=== PATIENT | male | born 1970 | race Caucasian/White ===

== ENCOUNTER 2022-03-08 01:41 | Outpatient (CLI) | payer OTHER, SELFPAY ==
--- OUTSIDE RECORDS SUMMARY | 2022-03-08 01:46 | XMS_ITS | Encounter Summary ---
:1970 Author Organization [facility] [place] [address] Care Team Providers Name Role Phone Dominga Salas APRN Primary Care Provider Reason for Referral Consultation (Routine) - Closed Specialty Diagnoses / Procedures Referred By Contact Refer mere To Contact Pain and Spine Center Diagnoses Thigh numbness Alan Hemphill MD [facility] Pain And [facility] Spine [address] [facility] NEUROSURGERY [address] [address] Phone: Fax: Referral ID Status Reason Start Expiration Visits Visits Date Date Requested Authorized [id number] Closed Pain 05/15/2021 05/15/2022 1 1 Interventional Procedure Reason for Visit Reason Comments Back Pain Left Leg Pain Consultation (Routine) - Closed Specialty Diagnoses / Procedures Referred By Contact Refer mere To Contact Pain and Spine Center Diagnoses Other specified postprocedural states Personal history of other diseases of the musculoskeletal system and connective tissue HX OF PREVIOUS BACK SURGERIES, L LATERAL THIGH NUMBNESS, L FOOT NUMBNESS, NOT ABLE TO SEPARATE TOES Dominga Salas [facility] Pain And [employer] Spine [address] [place] [place] [address] [address] [place] [address] Phone: Fax: Referral ID Status Reason Start Date Expiration Date Visits V isits Requested Authorized [id number] Closed Consult, Test 03/15/2021 03/15/2022 6 6 [facility] PCP Updated and/or Approved Encounter Details Date Type Department Care Team Description 05/15/2021 Office Visit Pain and Spine Center at Maricruz Hemphill MD Thigh numbness [facility] Catina [place] [address] [place] [address] [phone] (Wo rk) Social History Tobacco Use Types Packs/Day Years Used Date Never Smoker Smokeless Tobacco: Never Used Alcohol Use Standard Drinks/Week Comments Yes 0 (1 standard drink = 0.6 oz pure alcoho l) social- Alcohol Habits Answer Date Recorded How often do you have a drink containing alcohol? Not asked How many drinks containing alcohol do you have on a typical Not asked day when you are drinking? How often do you have six or more drinks on one occasion? No t asked Comment: social- 11/11/2013 Sex Assigned at Date Recorded Not on file documented as of this encounter Last Filed Vital Signs Vital Sign Reading Time Taken Comments Blood Pressure - - Pulse - - Temperature - - Respiratory Rate - - Oxygen Saturation - - Inhaled Oxygen Concentration - - Weight 97.5 kg (215 lb) 05/15/2021 8:58 AM EDT Height 176.5 cm (5' 9.5) 05/15/2021 8:58 AM EDT Body Mass Index 31.29 05/15/2021 8:58 AM EDT documented in this encounter Progress Notes lAan Hemphill MD - 05/15/2021 9:00 AM EDT Norm Blair returns to the spine center. I have performed several lumbar spine surgeries on him which have been for the most part successful. His complaint is that he has new numbness on the lateral surface of the left thigh. There is also some difficulty with control of the left leg but not really much in the way of pain. There are no right-sided symptoms and no bowel or bladder dysfunction. 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 On examination this is a man with a stated height of 5 feet 9 inches tall and a weight of 215 poundsfor a BMI of 31. There is full strength to confrontation in the lower extremities. He is able to step up and independently with either leg. There is decreased sensation to pinprick in the distribution of the lateral femoral cutaneous nerve of the thigh on the left. Deep tendon reflexes are trace at the knees and ankles. The distribution of his symptoms are consistent with meralgia paresthetica but also could be due to lumbar spine problems given his extensive spinal history. We had a discussion on the options and the situation. I think would be reasonable to get random glucose and hemoglobin A1c testing today I will refer him to the pain clinic for an injection of the left lateral femoral cutaneous nerve. I will seehim back following that. documented in this encounter Miscellaneous Notes Addendum Note - Pallavi Max - 05/15/2021 9:00 AM EDT Addended by: PALLAVI MAX on: 05/15/2021 10:05 AM Modules accepted: Orders documented in this encounter Plan of Treatment Scheduled Referrals Name Type Priority Associated Order Schedule Diagnoses Referral to Pain Outpatient Referral Routine Thigh numbness Or dered: Management 05/15/2021 documented as of this encounter Procedures Procedure Name Priority Date/Time Associated Diagnosis Comme nts HC HEMOGLOBIN A1C Routine 05/15/2021 10:24 AM Thigh numbness R esults for this EDT procedure are i n the results section. HC GLUCOSE, RANDOM Routine 05/15/2021 10:24 AM Thigh numbness Results for this EDT procedure are i n the results section. documented in this encounter Results Hemoglobin A1c (05/15/2021 10:24 AM EDT) athologist Signature Hemoglobin A1C 5.3 4.3 - 5.6 [facility] Comment: Reference Range: 4.3 - 5.6% 5.7 - 6.4% - Increased Risk of Developin g Diabetes Mellitus >= 6.5% - Consistent with diagnosis of D iabetes Mellitus In the absence of hyperglycemia (i.e. pl asma glucose > 200 mg/dL) or classic symptoms of hyperglycemia a repeat measu rement of HbA1c should be performed on a separate sample to confirm the diagnos is. Diagnosis and Classification of Diabetes Mellitus, Diabetes Care 2013; 36: Suppl. 1, S67-74 Est Avg Gluc 105 mg/dL [facility] Comment: eAG equivalents for HbA1c percentages: HbA1c(%) ?eAG(mg/dL) 6.0 ?126 6.5 ?140 7.0 ?154 7.5 ?169 8.0 ?183 8.5 ?197 9.0 ?212 9.5 ?226 10.0 ? 240 Limitations: The eAG calculation has not been validated on women, individuals below 18 years old and above 70 years old, and individuals with hemoglobinopathies. Additional resources are available on e ADA website. Arley CUNNINGHAM, Nicola J, Jeff R, et al. ??Tr anslating the A1C assay into estimated average glucose values. ??Diabetes Care 2008:31(8):4813-7803. Specimen Anatomical Collection Method Collection Time Receive d Time (Source) Location / / Volume Laterality Blood 05/15/2021 10:24 05/15/2021 AM EDT 10:29 AM EDT Resulting Agency Comment Spec In Lab Alan Hemphill MD CHEMISTRY ORDERABLES Performing Organization Address City/State/ZIP [place] [address] Glucose, random (05/15/2021 10:24 AM EDT) P athologist Signature Glucose Lvl 101 65 - 199 [facility] mg/dL [facility] Comment: Diabetes: >=200 mg/dL plus symp toms Specimen Anatomical Collection Method Collection Time Receive d Time (Source) Location / / Volume Laterality Blood 05/15/2021 10:24 05/15/2021 AM EDT 10:29 AM EDT Resulting Agency Comment Spec In Lab Alan Hemphill MD CHEMISTRY ORDERABLES Performing Organization Address City/State/ZIP [place] [address] documented in this encounter Visit Diagnoses Diagnosis Thigh numbness Disturbance of skin sensation documented in this encounter Care Teams Expeller Operator Relationship Specialty Start Date End Date Dominga Salas APRN PCP - General Internal Medicine 12/18/16 [facility] [place] [address] documented as of this encounter
--- OUTSIDE RECORDS SUMMARY | 2022-03-08 01:46 | XMS_ITS | Encounter Summary ---
:1970 Author Organization [facility] [place] [address] Care Team Providers Name Role Phone Dominga Salas APRN Primary Care Provider Reason for Visit Auth/Cert Specialty Diagnoses / Procedures Referred By Contact Refer red To Contact Diagnoses Meralgia paresthetica Procedures PRO INJECTION ANES AGENT &/OR STEROID OTHER PERIPHERAL NERVE/BRANCH NERVE BLOCK, OTHER PERIPHERAL NERVE OR BRANCH (WRVU 0.75) Referral ID Status Reason Start Date Expiration Date Visits Requ ested Visits Authorized [id number] 1 1 Encounter Details Date Type Department Care Team Description 06/15/2021 Surgery Pain Management Toni Child MD NERVE BLOCK, OTHER [facility] PER [facility] NERVE OR Hospital DR BRANCH (WRVU 0.75) [facility] [place] [address] [place] [address] [phone] Social History Tobacco Use Types Packs/Day Years [...] Sign Reading Time Taken Comments Blood Pressure 130/98 06/15/2021 8:51 AM EDT Pulse 79 06/15/2021 8:51 AM EDT Temperature - - Respiratory Rate - - Oxygen Saturation 98% 06/15/2021 8:51 AM EDT Inhaled Oxygen Concentration - - Weight 97.5 kg (215 lb) 06/15/2021 8:51 AM EDT Height 177.8 cm (5' 10) 06/15/2021 8:51 AM EDT Body Mass Index 30.85 06/15/2021 8:51 AM EDT documented in this encounter Discharge Instructions Discharge InstructionsJas Jc - 06/15/2021 9:40 AM EDT Pain Management Center Discharge Instructions: You were seen today by Surgeon(s): Toni Plascencia MD Mainkar, Ojas A, MD The following was performed: Procedure(s) (LRB): NERVE BLOCK, OTHER PERIPHERAL NERVE OR BRANCH (WRVU 0.75) (Left) It is normal that the injection site will be sore for up to 48 hours. [x] You may also experience mild stiffness in the joint near the injection site. You may resume your normal activities: tomorrow. You may shower today. DO NOT tub bathe, use whirlpools, hot tubs or pool therapy for 2 days. Remove Band-Aid(s) later today/tomorrow. Do not drive until tomorrow. Use caution walking/climbing stairs as you may be unsteady on your feet. You may use your usual medications, including pain medications, as directed, unless otherwise instructed. You may use an ice pack as needed for the first 24 hours, on for 20 minutes then off for 20 minutes.Do not apply heat today. Attempt to empty your bladder 4-6 hours after your procedure. [ ] If you have diabetes, monitor your blood sugars frequently. If your blood sugar increases and isof concern, contact your Primary Care Provider. You received the following medications: Medications Given During Procedure Date/Time Order Dose Route Action 06/15/2021 0938 BUpivacaine (pf) (Marcaine) (2.5 mg/mL) 0.25% injection 6 mL Intramuscular Given 06/15/2021 0940 methylPREDNISolone acetate (DEPO-Medrol) (40 mg/mL) injection 40 mg Intramuscular Given During regular business hours, please phone the Pain Management Center at with any questions or if the following or other troubling symptoms develop: 1) Prolonged dizziness or weakness (more than 1 day). 2) Localized swelling, redness or drainage at the injection site(s). 3) Temperature of 101 degrees that lasts for more than 4 hours. After 5 PM or on weekends, call and ask for Pain Clinic provider on-call. If you are unable to reach the Pain Management Center and have a complication, please call your Primary Care Provider or proceed to your local emergency department. Jas Jc Special instructions documented in this encounter Medications at Time of Discharge Medication Sig Dispensed Refills Start Date End Date multivit-min/folic/vit Take 1 tablet by 0 K/lycop (ONE-A-DAY MEN'S mouth daily. MULTIVITAMIN ORAL) MARIJUANA ORAL Take by mouth. 0 Patient uses edible as needed documented as of this encounter H&P Notes Anamaria Martinez MD - 06/14/2021 4:52 PM EDT Patient Name: Norm Blair Patient Age: 50 y.o. Birthdate: 1970 Admit date: (Not on file) Attending Physician: Toni Plascencia MD PREPROCEDURE HISTORY AND PHYSICAL Date of Visit: June 14, 2021 Chief Complaint: Meralgia paresthetica HPI: Norm Blair is a 50 y.o. male who presents today for L LFCN block with a diagnosis of 1. Meralgia paresthetica, unspecified laterality . The history is obtained from the patient, and I have reviewed medical records provided by the referring physician and located in the electronic medical record to fill in gaps in the patient's recollection of events, treatments and outcomes. LOCATION: L thigh PAST MEDICAL HISTORY: No past medical history on file. There are no medical history contraindications to this procedure. PAST SURGICAL HISTORY: Past Surgical History: Procedure Laterality Date ??? PRO LAMINOTOMY, LUMBAR DISK, 1 INTRSP 10/01/2013 LAMINOTOMY, DECOMPRESSION, FORAMINOTOMY, LUMBAR performed by Alan Hemphill MD at [facility] OR There are no past surgical contraindications to this procedure ALLERGIES: Gluten There are no allergic contraindications to this procedure. MEDICATIONS: No current facility-administered medications for this encounter. Current Outpatient Medications: ??? multivit-min/folic/vit K/lycop (ONE-A-DAY MEN'S MULTIVITAMIN ORAL), Take 1 tablet by mouth daily., Disp: , Rfl: ??? MARIJUANA ORAL, Take by mouth. Patient uses edible as needed, Disp: , Rfl: There are no medication contraindications to this procedure. FAMILY HISTORY: No family history on file. SOCIAL HISTORY: Social History Socioeconomic History ??? Marital status: Spouse name: Not on file ??? Number of children: Not on file ??? Years of education: Not on file ??? Highest education level: Not on file Occupational History ??? Not on file Tobacco Use ??? Smoking status: Never Smoker ??? Smokeless tobacco: Never Used Vaping Use ??? Vaping Use: Never used Substance and Sexual Activity ??? Alcohol use: Yes Comment: social- ??? Drug use: No ??? Sexual activity: Not on file Comment: defer Other Topics Concern ??? Not on file Social History Narrative ??? Not on file Social Determinants of Health Financial Resource Strain: ??? Difficulty of Paying Living Expenses: Not on file Food Insecurity: ??? Worried About Running Out of Food in the Last Year: Not on file ??? Ran Out of Food in the Last Year: Not on file Transportation Needs: ??? Lack of Transportation (Medical): Not on file ??? Lack of Transportation (Non-Medical): Not on file Physical Activity: ??? Days of Exercise per Week: Not on file ??? Minutes of Exercise per Session: Not on file Housing Stability: ??? Unable to Pay for Housing in the Last Year: Not on file ??? Number of Places Lived in the Last Year: Not on file ??? Unstable Housing in the Last Year: Not on file There are no social history contraindications to this procedure. ROS: Review of Systems Constitutional: Negative for fever, chills, or recent infection. Respiratory: Negative for shortness of breath. Cardiovascular: Negative for chest pain. Psychiatric/Behavioral: Negative for agitation and behavioral problems. PHYSICAL EXAM: There were no vitals taken for this visit. Physical Exam Constitutional: He appears well-developed and well-nourished. No distress. Cardiovascular: Normal heart rate. Pulmonary/Chest: Effort normal and breath sounds normal. Skin: He is not diaphoretic. This is no rash, apparent infection, or other abnormality to the area of the proposed injection. There are no physical examination findings which would preclude this procedure. ASSESSMENT: 1. Meralgia paresthetica, unspecified laterality PLAN: Proceed with procedure as planned. Thank you for the opportunity to participate in Norm Blair's care. Please feel free to contact me with any questions. Sincerely, Anamaria Martinez MD Pain Medicine Fellow documented in this encounter Miscellaneous Notes Op Note - Toni Plascencia MD - 06/15/2021 9:37 AM EDT Pain Management Operative Note Patient Name: Norm Blair : [id number] MR#: [id number] Case Date: 06/15/2021 Surgeon: Surgeon(s) and Role: * Toni Plascencia MD - Primary * Anamaria Martinez MD - Fellow Present on Admission: Left meralgia paresthetica Postoperative diagnosis: Same Procedure(s) (LRB): NERVE BLOCK, OTHER PERIPHERAL NERVE OR BRANCH (WRVU 0.75) (Left) ULTRASOUND-GUIDED LEFT LATERAL FEMORAL CUTANEOUS NERVE BLOCK PROCEDURE NOTE The patient complains of left anterolateral thigh pain. Dx: meralgia paresthetica Mr. Blair was greeted by the nurse who verified patients name and . Mr. Blair was interviewed and the medical record reviewed. There were no medical, pharmacologic, radiographic, or other structural contraindications to attempting the lateral femoral cutaneous block.Risks and potential side effects were discussed. The potential benefits of the procedure were reviewed with Mr. Blair and his voiced concerns were addressed. After obtaining informed consent, the patient consent form was signed. Standard time-out procedure was performed. Mr. Blair was placed in the supine position on the procedure table. The skin entry point for entering/approaching a point 3 cm distal and then 3 cm medial to the ASIS was marked. The skin was thoroughly prepared with chlorhexidine preparation. Using a linear ultrasound probe, the lateral femoral cutaneus nerve, femoral artery, femoral nerve and femoral vein were identified. The insertion area was thoroughly anesthetized with 1% Lidocaine using a 1.5 25G skin needle. Next, I entered the skin usinga lateral to medial approach with a 2 22 G ultrasound needle until the tip of the need was in closeproximity to the lateral femoral cutaneus nerve. Aspiration revealed no blood or other fluid. Next, I injected a solution of 6 cc of 0.25% Bupivacaine mixed with 1 cc of DepoMedrol (40 mg/cc) without resistance. This was watched with ultrasound in real time. Hydrodissection was noticed around the lateral femoral cutaneous nerve. 1. Follow up with dr. Hemphill. 2. RTC if repeat injection needed. Post procedure instruction was given. Having met discharge criteria he was discharged from the Pain Management Center. The procedure was performed by Dr. Martinez under my supervision. I was the attending physician supervising the fellow in the above care and I was present with the fellow for the entire procedure. Toni Plascencia MD Attending Physician [facility] [place] [address] / CC: Dominga Salas, CRAP SHOOTER [address] [place] [id number] documented in this encounter Plan of Treatment Not on filedocumented as of this encounter Procedures Procedure Name Priority Date/Time Associated Diagnosis Comme nts NERVE BLOCK, OTHER 06/15/2021 9:23 AM EDT Meralgia PERIPHERAL NERVE OR paraesthetica, left BRANCH (WRVU 0.75) NERVE BLOCK, OTHER Routine 06/15/2021 8:47 AM EDT Meralgia PERIPHERAL NERVE OR paraesthetica, left BRANCH documented in this encounter Visit Diagnoses Diagnosis Meralgia paresthetica, unspecified later ality Meralgia paraesthetica, left Meralgia paraesthetica, left documented in this encounter Administered Medications Inactive Administered Medications - up to 3 most recent administrations Medication Order MAR Action Action Date Dose Rate Site BUpivacaine (pf) (Marcaine) (2.5 Given 06/15/2021 9:38 AM EDT 6 mLs mg/mL) 0.25% injection ONCE PRN, Starting on Amanda 06/15/21 at 0938, Until Amanda 06/15/21 at 1148, Intra-Operative (Intra-Procedure), Routine methylPREDNISolone acetate (DEPO-Medrol) (40 Given 9:40 AM EDT 40 mg mg/mL) injection ONCE PRN, Starting on Amanda 06/15/21 at 0940, Until Amanda 06/15/21 at 1148, Intra-Operative (Intra-Procedure), Routine documented in this encounter Active and Recently Administered Medications Times are shown in EDT. PRN Medication Order 06/13/2021 06/14/2021 06/15/2021 BUpivacaine (pf) (Marcaine) (2.5 mg/mL) 0.25% injection (CANCELE D) 0938 (Given - Provider: Anamaria Martinez MD - Comment: left lateral cutaneous nerve block) ONCE PRN, Starting on Amanda 06/15/21 at 09 38, Until Amanda 06/15/21 at 1148, Intra- Operative (Intra-Procedure), Routine methylPREDNISolone acetate (DEPO-Medrol) (40 mg/mL) injection (C ANCELED) 0940 (Given - Provider: Anamaria Martinez MD - Comment: left lateral cutaneous nerve block) ONCE PRN, Starting on Amanda 06/15/21 at 09 40, Until Amanda 06/15/21 at 1148, Intra- Operative (Intra-Procedure), Routine documented in this encounter Care Teams Aging Room Hand Relationship Specialty Start Date End Date Dominga Salas APRN PCP - General Internal Medicine 12/18/16 [address] [place] [address] documented as of this encounter
--- OUTSIDE RECORDS SUMMARY | 2022-03-08 01:46 | XMS_ITS | Encounter Summary ---
:1970 Author Organization [facility] [place] [address] Care Team Providers Name Role Phone Dominga Salas APRN Primary Care Provider Reason for Visit Auth/Cert Specialty Diagnoses / Procedures Referred By Contact Refer red To Contact Diagnoses Meralgia paresthetica Procedures PRO INJECTION ANES AGENT &/OR STEROID OTHER PERIPHERAL NERVE/BRANCH NERVE BLOCK, OTHER PERIPHERAL NERVE OR BRANCH (WRVU 0.75) Referral ID Status Reason Start Date Expiration Date Visits Requ ested Visits Authorized [id number] 1 1 Encounter Details Date Type Department Care Team Description 06/15/2021 Ancillary Procedure Pain Management Galen Child usa, MD Pain [facility] PAIN CLINIC [address] [address] [phone] Social History Tobacco Use Types Packs/Day Years [...] on file documented as of this encounter Plan of Treatment Not on filedocumented as of this encounter Procedures Procedure Name Priority Date/Time Associated Diagnosis Comme nts FILM LIBRARY Routine 06/15/2021 9:59 AM Pain Results f or this STORAGE ONLY PAIN EDT procedure are in CLINIC [facility] the results section. documented in this encounter Results Film Library- Storage Only pain Clinic [facility] (06/15/2021 9:59 AM EDT) Specimen (Source) Anatomical Location Collection Method / Collectio n Time Received Time / Laterality Volume Narrative [facility] - 06/15/2021 9:59 AM EDT See PACS for result report. Toni Plascecnia MD IMMaximino FILM LIBRARY ORDERABLES Performing Organization Address City/State/ZIP Code Phon e Number [place], [place] documented in this encounter Visit Diagnoses Diagnosis Pain Generalized pain documented in this encounter Care Teams Corporate Legal Manager Relationship Specialty Start Date End Date Dominga Salas APRN PCP - General Internal Medicine 12/18/[address] [place] [address] documented as of this encounter
--- OUTSIDE RECORDS SUMMARY | 2022-03-08 01:46 | XMS_ITS | Encounter Summary ---
:1970 Author Organization [facility] [place] [address] Care Team Providers Name Role Phone Dominga Salas APRN Primary Care Provider Encounter Details Date Type Department Care Team Description 12/07/2021 Office Visit Neurosurgery at [facility] [place] Alan Hemphill MD Meralgia paresthetickendal [place] [phone] NEUROSURGERY [phone] [place], [place] [address] Social History Tobacco Use Types Packs/Day Years [...] Sign Reading Time Taken Comments Blood Pressure 144/93 12/07/2021 10:33 AM EDT Pulse 110 12/07/2021 10:33 AM EDT Temperature 36.7 ??C (98.1 ??F) 12/07/2021 10:33 AM EDT Respiratory Rate 18 12/07/2021 10:33 AM EDT Oxygen Saturation 97% 12/07/2021 10:33 AM EDT Inhaled Oxygen Concentration - - Weight 109.9 kg (242 lb 3.2 oz) 12/07/2021 10:33 AM EDT Height 177.8 cm (5' 10) 12/07/2021 10:33 AM EDT Body Mass Index 34.75 12/07/2021 10:33 AM EDT documented in this encounter Progress Notes Alan Hemphill MD - 12/07/2021 10:30 AM EDT Norm Blair returns to neurosurgery clinic. He underwent injection of the left lateral femoral cutaneous nerve and although there was not immediate improvement over the subsequent months there was slow improvement. He does still have diffuse back and leg pain. We discussed the possibility of further imaging he is not particularly interested in that partly due to financial considerations. He is thinking about the possibility of disability. I think it would be reasonable for him to meet with one of the social workers to discuss his options and that will be arranged. We discussed my upcoming usp and how he could be seen by one of my partners in the future if questions were to arise. documented in this encounter Plan of Treatment Not on filedocumented as of this encounter Visit Diagnoses Diagnosis Meralgia paresthetica of left side Meralgia paresthetica documented in this encounter Care Teams Hand Meat Salter Relationship Specialty Start Date End Date Dominga Salas APRN PCP - General Internal Medicine 12/18/16 [address] [place] [address] documented as of this encounter
--- OUTSIDE RECORDS SUMMARY | 2022-03-08 01:46 | XMS_ITS | Encounter Summary ---
:1970 Author Organization [facility] [place] [address] Care Team Providers Name Role Phone Dominga Salas APRN Primary Care Provider Encounter Details Date Type Department Care Team Description 06/13/2021 Telephone Pain and Spine Far[facility]ad mahan at [facility] [place] Brianne [place]ales, [place] [address] Social History Tobacco Use Types Packs/Day Years [...] on file documented as of this encounter Miscellaneous Notes Telephone Encounter - Brianne Morales, RN - 06/13/2021 11:36 AM EDT Contact made with patient or off premise service representative as identified in contacts 1. Patient instructed to arrive at 08:45 on 06/15/21 with their courtesy bus driver for their left lateral femoral cutaneous nerve block procedure. Please plan to spend about 2 hours at the center. (3 hours for RFA) 2. Has pt started any new medications or supplements in the past two weeks? No 3. Have any of the following occurred within the two weeks before the procedure date? a. Patient is having a Covid vaccine or other vaccine No b. Patient has been exposed to anybody with a contagious illness such as Covid, flu, No c. Patient is taking antibiotics to treat an infection No d. Patient has any skin rashes, breakdown, blisters or open wounds No e. Patient has had any hospitalizations, ED visits, surgery, other procedure, dental procedure No f. Patient has taken oral steroids or had a steroid injection No g. Does patient have any of the following symptoms that are NEW and NOT explained by another health condition: fever or chills, cough, shortness of breath or difficulty breathing, fatigue, muscle or body aches, headache, new loss of taste or smell, sore throat, congestion or runny nose, nausea or vomit ing, diarrhea. No If yes, the patient has been directed to the covid hotline for testing prior to their procedure. (route telephone note to: [facility] Public Health covid 19 nurse triage with routing comment stating pt needs covid test prior to procedure and give date of procedure, add name and MRN to tracking tool). h. Has the patient's pain resolved or significantly improved such as a rating of 3/10 or less? No 4. Was patient instructed to stop any medications? No if yes: a. Name of medication(s): b. Confirm date of last dose: 5. Is patient having a nerve block: Yes a. If yes instructed to not take any pain medication for 12 hours before your procedure. 6. Patient instructed to take any prescribed medications that they were not told to stop, especiallyblood pressure medication, because their procedure may be cancelled if their blood pressure is too high. 7. Was patient instructed to follow NPO guidelines: No if yes, the following instructions were reviewed: a. You may eat up to 6 hours before your procedure b. You may have clear liquids only up to 2 hours before your procedure: water, apple juice, valerie darren, sprite, popsicles, broth, tea or coffee plain or with sweetener, absolutely no dairy products, nomilk including soy, oat, almond. 8. IF RFA: Does patient have a pacemaker? No a. If yes, document that cardiology was called and notified. 9. Additional notes if applicable: Patient expressed understanding and agreement with instructions Yes Patient denies further questions Yes documented in this encounter Plan of Treatment Not on filedocumented as of this encounter Visit Diagnoses Not on filedocumented in this encounter Care Teams High School Vice Principal Relationship Specialty Start Date End Date Dominga Salas APRN PCP - General Internal Medicine 12/18/16 [address] [place] [address] documented as of this encounter
--- OUTSIDE RECORDS SUMMARY | 2022-03-08 01:46 | XMS_ITS | Encounter Summary ---
:1970 Author Organization [facility] [place] [address] Care Team Providers Name Role Phone Dominga Salas APRN Primary Care Provider Reason for Visit Reason Comments Left Leg Pain Consultation (Routine) - Closed Specialty Diagnoses / Procedures Referred By Contact Refer red To Contact Pain and Spine Center Diagnoses Thigh numbness Aaln Hemphill MD [facility] [place] [facility] Pain And [facility] Spine DR [facility] NEUROSURGERY [address] [address] Phone: Fax: Referral ID Status Reason Start Expiration Visits Visits Date Date Requested Authorized [id number] Closed Pain 05/15/2021 05/15/2022 1 1 Interventional Procedure Encounter Details Date Type Department Care Team Description 05/25/2021 Office Visit Pain and Spine Center Toni Plascencia MD Meralgia at [facility] paraesthetica, left [facility] [place] [phone] Social History Tobacco Use Types Packs/Day Years [...] Sign Reading Time Taken Comments Blood Pressure 146/93 05/25/2021 3:19 PM EDT Pulse 92 05/25/2021 3:19 PM EDT Temperature - - Respiratory Rate - - Oxygen Saturation 97% 05/25/2021 3:19 PM EDT Inhaled Oxygen Concentration - - Weight 99.8 kg (220 lb) 05/25/2021 3:19 PM EDT Height 176.5 cm (5' 9.5) 05/25/2021 3:19 PM EDT Body Mass Index 32.02 05/25/2021 3:19 PM EDT documented in this encounter Progress Notes Wolfgang Quintero MD - 05/25/2021 3:20 PM EDT [facility] Pain Clinic Initial Consultation Note DOS: 05/25/21 : 1970 Norm Blair is a 50 y.o. year old male with a PMH including herniated lumbar disc without myelopathy who presents to the pain clinic at the referral of Alan Hemphill MD [facility] [place] [address] for consultation regarding Left lateral thigh numbness. CC: Chief Complaint Patient presents with ??? Left Leg Pain HPI: Norm is a 50 yo male, pt of Dr. Hemphill, who presents to the pain clinic for evaluation of L lateral thigh numbness and question of left lateral femoral cutaneous nerve injection. He has a h/o several lumbar spine surgeries. Has a h/o L posterior leg numbness for quite some time but the numbness of the thigh is new. He denies wearing tight belts or work belts or any other source of pressure along the belt line. Per patient, Dr. Hemphill would like to have injection performed prior to MRI. Site/Radiation: Left lateral thigh Onset: 2-3 months ago Pain Description: Location - L lateral thigh Quality - numbness Weakness - possibly Numbness/Tingling - yes Pain score: denies Alleviating factors - denies Aggravating factors - sitting for long periods Associated Symptoms: Denies weakness, bladder or bowel incontinence or saddle anesthesia. Current Treatments - marijuana edibles Prior Treatments/Medications (Per prior notes and patient): Medications : Topicals - denies NSAIDs - denies Acetaminophen - denies Antidepressants - denies Antieptileptics - denies Muscle Relaxants - denies Opioids - denies Steroids - denies PT: denies Surgery: 4 lumbar surgeries Injections: back injections 2008 Chiropractic: denies Acupuncture: denies Mental Health: denies ROS: Constitutional: No unintentional weight loss or gain, fevers, chills, or night sweats. HENT: No recent hearing changes. No difficulty swallowing. Eyes: No recent vision changes. Respiratory: No cough or shortness of breath. Cardiovascular: No chest pain or syncope. GI: No diarrhea, nausea, vomiting, or constipation. : No dysuria, hesitancy, or urgency. No incontinence. Musculoskeletal: No muscle weakness. Skin: No rashes or lesions. Neurologic: No numbness/tingling. No difficulty with balance. Psychiatric: Mood ok. No SI/HI. Sleep is good. Heme/Lymph/Imm: No easy bleeding or brusing. PMH/PSH: Patient Active Problem List Diagnosis Code ??? Herniated lumbar disc without myelopathy M51.26 ??? Condyloma acuminata A63.0 ??? Nevus D22.9 ??? Alopecia areata L63.9 ??? Acrochordon L91.8 No past medical history on file. Past Surgical History: Procedure Laterality Date ??? PRO LAMINOTOMY, LUMBAR DISK, 1 INTRSP 10/01/2013 LAMINOTOMY, DECOMPRESSION, FORAMINOTOMY, LUMBAR performed by Alan Hemphill MD at [facility] MAIN OR FAMILY HISTORY: No family history on file. SOCIAL HISTORY: Tobacco: no Alcohol: no Recreational drug use: marijuana Work: fills [employer] FUNCTIONAL STATUS: Independent in all ADLs. MEDICATIONS: Current Outpatient Medications: ??? multivit-min/folic/vit K/lycop (ONE-A-DAY MEN'S MULTIVITAMIN ORAL), Take 1 tablet by mouth daily., Disp: , Rfl: ??? MARIJUANA ORAL, Take by mouth. Patient uses edible as needed, Disp: , Rfl: ALLERGIES: Allergies Allergen Reactions ??? Gluten ciliac disease PHYSICAL EXAM: General: Patient is seated comfortably in NAD, well-groomed. HEENT: Head atraumatic, EOMI. Respiratory: Breathing comfortably on RA. Cardiovascular: 2+ peripheral pulses, no swelling Abdominal: non-distended, non-tender to palpation Skin: No appreciable rashes or skin breakdown Psych: Appropriate affect, A&Ox3, answers questions appropriately Musculoskeletal: LUMBAR SPINE EXAMINATION: Inspection: Scar: Yes Scoliosis: No; Obvious rash or infection: No Palpation: No TTP Range of motion: unrestricted with all planes Gait:normal gait and station Left Right Sacroiliac joint tenderness No No Facet joint tenderness No Yes Paraspinous region tenderness Negative Negative Red's test No No Heel walk Normal Normal Toe walk Normal Normal Straight leg raise Normal Normal Sacroiliac Joint: Test Left-sided SIJ pain? Right-sided SIJ pain? MELONY test no no Distraction no no Compression no no Sacral thrust no no Motor: Segment Muscle Action R L L3 Quadriceps Knee extension 5/5 5/5 L4,5 Hamstring Knee Flexion 5/5 5/5 L4 Tibialis anterior Dorsiflexion 5/5 5/5 L5 Extensor hallucis Great toe extension 5/5 5/5 S1 Gastrocnemius, FHL Plantar flexion 5/5 5/5 * exam limited by pain Sensory: Light Touch (0=absent, 1=impaired, 2=normal) Segment location Right Left L1 upper inner thigh 2 2 Lateral thigh 2 1 L2 mid-ant thigh 2 1 L3 med femoral condyle 2 2 L4 medial mal 2 2 L5 dorsum foot, 3rd MT 2 2 S1 lat heel 2 2 S2 Popliteal fossa 2 2 Reflexes: (0=absent, 1=slight response, 2=brisk/normal, 3=very brisk, 4=clonus) Test Root / Syndrome Right Left Knee L4 1 1 Ankle S1 1 1 Clonus Myelopathy neg neg TESTS/IMAGING: MRI 2015: IMPRESSION: Multilevel lumbar disc and facet degenerative changes as described above. No recurrent disc herniation at the levels of intervention. Moderate left L4-L5 and bilateral L5-S1 neural foraminal stenosis. The left L4-L5 facet joint may contact the exiting left L4 nerve root. Moderate bilateral subarticular recess stenosis at L4-L5. LABS: No results for input(s): WBC, RBC, HGB, HCT, MCV, MCH, MCHC, PLATELET, RDWCV in the last 168 hours. No results for input(s): PT, PTT, INR in the last 168 hours. Assessment: Norm Blair is a 50 y.o. year old male with a PMH including herniated lumbar disc without myelopathy who presents to the pain clinic for consultation regarding Left lateral thigh numbness. 1. Lateral thigh numbness: Unknown cause. Pt denies wearing tight fitting belts and is not obese. Hehas no signs of radiculopathy on exam. Possible meralgia paresthetica. Agree with plan to proceed tolateral femoral cutaneous nerve block. Plan: Diagnosis reviewed, treatment option addressed, and risk/benefits discussed. Self-care instructions given. I am recommending a multidisciplinary treatment plan to help this patient better manage their pain. 1. Physical Therapy: None 2. Clinical Health Psychologist to address issues of relaxation, behavioral change, coping style, and other factors important to improvement: None 3. Self Care Recommendations: None 4. Diagnostic Studies: None 5. Medication Management: None 6. Further procedures recommended: Left lateral femoral cutaneous nerve injection 7. Referrals: None 8. Follow up: With Dr. Hemphill Thank you for allowing us the opportunity to participate in Norm Blair's care. Wolfgang Quintero MD Pain Medicine Fellow [address] [phone] / [facility] Seen and discussed with supervising attending Dr. Plascencia. I have seen the patient and reviewed Dr. Quintero's above history and I agree with the details as written. The assessment and plan were formulated in discussion with me and I agree with them as documented. Toni Plascencia MD Attending [facility]ician [facility] [address] [address] / CC: Alan Hemphill MD [facility] [place] [place] [address] documented in this encounter Plan of Treatment Not on filedocumented as of this encounter Visit Diagnoses Diagnosis Meralgia paraesthetica, left documented in this encounter Care Teams Health Social Work Professor Relationship Specialty Start Date End Date Dominga Salas APRN PCP - General Internal Medicine 12/18/[address] [place] [address] [address] documented as of this encounter
--- OUTSIDE RECORDS SUMMARY | 2022-03-08 01:47 | XMS_ITS | Encounter Summary ---
:1970 Author Organization [facility] [place] [address] Care Team Providers Name Role Phone Jacob Adams MD Primary Care Provider [phone] Encounter Details Date Type Department Care Team Description 12/23/2013 Follow-Up Neurosurgery at [facility] [place] Alan Hemphill MD Spondylosis ([facility] [place] [phone] NEUROSURGERY [place], [place] [address] Social History Tobacco Use Types [...] Sign Reading Time Taken Comments Blood Pressure 143/90 12/23/2013 10:15 AM EDT Pulse 102 12/23/2013 10:15 AM EDT Temperature - - Respiratory Rate - - Oxygen Saturation - - Inhaled Oxygen Concentration - - Weight 93 kg (205 lb) 12/23/2013 10:15 AM EDT Height 177.8 cm (5' 10) 12/23/2013 10:15 AM EDT Body Mass Index 29.41 12/23/2013 10:15 AM EDT documented in this encounter Progress Notes Alan Hemphill MD - 12/23/2013 2:27 PM EDT Norm Blair returns to Neurosurgery Clinic. He has been engaging in physical therapy and is doing well. He has some occasional leg pain, but much much better than before surgery. 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 All questions were answered. He knows he can call here at any time if any further problems or questions should arise. documented in this encounter Plan of Treatment Not on filedocumented as of this encounter Visit Diagnoses Diagnosis Spondylosis - Primary Spondylosis of unspecified site without mention of myelopathy documented in this encounter Care Teams Film Vault Supervisor Relationship Specialty Start Date End Date Jacob Adams MD PCP - General 07/11/10 12/17/[address] [place] [address] documented as of this encounter
--- OUTSIDE RECORDS SUMMARY | 2022-03-08 01:47 | XMS_ITS | Encounter Summary ---
:1970 [place] [address] Care Team Providers Name Role Phone Jacob Adams MD Primary Care Provider Encounter Details Date Type Department Care Team Description 10/01/2013 Anesthesia Event Main Operating Room Haroon Price MD [facility] [place] [address] [facility] Rosalie Murray [facility] [place] [address] [place] [address] Anesthesia Record Procedure Summary Procedure Name Responsible Anesthesia Start Anesthesia Stop Time Anesthesiologist Time LAMINMicheal CAM Athos J, MD 10/01/13 0729 10/01/13 10 40 DECOMPRESSION, FORAMINOTOMY, LUMBAR (WRVU 13.18) (N/A Spine Lumbar) Events Date Time Event Comment 10/01/2013 0716 0729 Start 0733 AN Verify 0740 An Start Data 0740 An Induction 0742 An Intubation 0745 Anesthesia Ready 0830 Procedure Start [address] Joby mahan equests that patient not be relaxed for sallie modesta of case 1029 Extubation/LMA Out 1031 an stop data 1040 Stop 1040 Handoff The patient's ch art was reviewed. The current anestetic course as well as the anesthetic plans were also review ed. Name Total fentaNYL 350 mcg IV Lidocaine 100 mg Propofol 200 mg PHENYLephrine 240 mcg Ondansetron 8 mg Dexamethasone 8 mg Neostigmine 5 mg Glycopyrrolate 1 mg ceFAZolin 2 g Propofol INF 662.11 mg Vecuronium 13 mg lactated ringers infusion 1,000 mL 0 mL Agents Name O2 Sevoflurane (et) Isoflurane (et) Blood No blood administrations on file. Lines, Drains, and Airways Type Details Placement Removal Incision 10/01/13; lumbar spine 10/01/13 0000 by Obey Cabrera RN Urethral Catheter 10/01/13; indwelling 10/01/13 0000 by 10/01/131953 by double lumen catheter; Obey Cabrera RN Larosil iere, Jeanne 100% silicone; 16; S, VISCOSITY WORKER inserted; 1; drainage bag to dependent drainage; 10/01/13; 1953 PIV 10/01/13; 0655; 10/01/13 0655 by Phu, 10/02/13 1143 by 10/02/13; 1143 ANNEMARIE Monteiro Angela M VISCOSITY WORKER (RETIRED) Mask Ventilation: Easy 10/01/13 0742 by 10/01/13 1029 by Non-Surgical Airway (1); ETT Type: Cuffed, Rosalie Murray, Rosalie Lanza, Oral; ETT Size: 8 mm; DIRECT MARKETING REPRESENTATIVE DIRECT MARKETING REPRESENTATIVE Oral Airway: 100 mm (5) documented in this encounter Social History Tobacco Use Types Packs/Day Years Used Date Never Smoker Smokeless Tobacco: Never Used Alcohol Use Standard Drinks/Week Comments Yes 0 (1 standard drink = 0.6 oz pure alcoho l) social-1 beer a week Alcohol Habits Answer Date Recorded How often do you have a drink containing alcohol? Not asked How many drinks containing alcohol do you have on Not asked a typical day when you are drinking? How often do you have six or more drinks on one Not asked occasion? Comment: social-1 beer a week 10/01/2013 Sex Assigned at Date Recorded Not on file documented as of this encounter OR Notes Anesthesia Postprocedure Evaluation - aHroon Burton MD - 10/02/2013 5:33 PM EST Patient: Norm Blair Procedure(s) Performed: Procedure(s): LAMINOTOMY, DECOMPRESSION, FORAMINOTOMY, LUMBAR Actual Anesthetic: No value filed. Patient location: PACU Post-op pain: Adequate analgesia Post-op nausea: no nausea or vomiting Last Vitals: Filed Vitals: 10/02/13 1027 BP: 130/70 Pulse: 68 Temp: 36.6 ??C (97.9 ??F) Resp: 17 Post-op cardiovascular and respiratory status: is stable Level of consciousness: awake, alert and oriented Complications: no apparent complications and tolerated the procedure well Fluid Status: normal Anesthesia Preprocedure Evaluation - Haroon Burton MD - 10/01/2013 7:20 AM EST Pre-Anesthesia Evaluation for: Norm Blair a 42 y.o. male. Procedure(s): LAMINOTOMY, DECOMPRESSION, FORAMINOTOMY, LUMBAR Patient Active Problem List Diagnosis ??? Herniated lumbar disc without myelopathy No past medical history on file. No past surgical history on file. History Substance Use Topics ??? Smoking status: Never Smoker ??? Smokeless tobacco: Never Used ??? Alcohol Use: Yes Comment: social History Drug Use No Allergies Allergen Reactions ??? Gluten ciliac disease Medications: MAR and/or home medications have been reviewed. Physical Exam: There were no vitals filed for this visit. There is no height or weight on file to calculate BMI. Airway Assessment: Mallampati: II Cardiovascular Assessment: Pulmonary Assessment: Dental Assessment: Misc Assessment: Anesthesia Plan: ASA 2 general, Informed Consent: Misc. Assessment: documented in this encounter Plan of Treatment Not on filedocumented as of this encounter Visit Diagnoses Not on filedocumented in this encounter Administered Medications Inactive Administered Medications - up to 3 most recent administrations Medication Order MAR Action Action Date Dose Rate Site ceFAZolin (ANCEF) 1g in dextrose 5% Given 10/01/2013 7:34 AM EST 2 g 50mL PRN, Starting on Amanda 2/13/14 at 0734, Until Amanda 10/01/13 at 1043, Administer over 30 Minutes, Anesthesia Intra-op dexamethasone (DECADRON) injection Given 10/01/2013 8:12 AM EST 8 mg PRN, Starting on Amanda 10/01/13 at 0812, Until Amanda 10/01/13 at 1043, Anesthesia Intra-op, Routine fentaNYL 50mcg/mL injection Given 10/01/2013 9:27 AM EST 100 mcg PRN, Starting on Amanda 10/01/13 at 0753, Until Amanda 10/01/13 at 1043, Pain, Anesthesia Intra-op, Routine Given 10/01/2013 8:27 AM EST 100 mcg Given 10/01/2013 7:53 AM EST 100 mcg glycopyrrolate (ROBINUL) injection Given 10/01/2013 10:17 AM EST 0.2 mg PRN, Starting on Amanda 10/01/13 at 0934, Until Amanda 10/01/13 at 1043, Anesthesia Intra-op, Routine Given 10/01/2013 10:02 AM EST 0.4 mg Given 10/01/2013 9:34 AM EST 0.4 mg lactated ringers infusion 1,000 mL New Bag 10/01/2013 9:15 AM EST mL 1,000 mL, at 100 mL/hr, Intravenous, CONTINUOUS, Starting on Amanda 10/01/13 at 0700, Until Amanda 10/01/13 at 1228, Day of Surgery (Day of Procedure) New Bag 10/01/2013 7:28 AM EST mL lidocaine (PF) (XYLOCAINE) 100 mg/5 mL (2 %) Given 7:40 AM EST 100 mg injection PRN, Starting on Amanda 10/01/13 at 0740, Until Amanda 10/01/13 at 1043, Anesthesia Intra-op, Routine neostigmine (PROSTIGMINE) injection Given 10/01/2013 10:17 AM EST 1 mg PRN, Starting on Amanda 10/01/13 at 0934, Until Amanda 10/01/13 at 1043, Anesthesia Intra-op, Routine Given 10/01/2013 10:02 AM EST 2 mg Given 10/01/2013 9:34 AM EST 2 mg ondansetron (ZOFRAN) injection Given 10/01/2013 10:03 AM EST 8 mg PRN, Starting on Amanda 10/01/13 at 1003, Until Amanda 10/01/13 at 1043, Nausea, Anesthesia Intra-op, Routine PHENYLephrine HCl in NS (PF) (ELVA-SYNEPHRINE) Given 9:00 AM EST 80 mcg 0.8 mg/10 mL (80 mcg/mL) injection Syrg PRN, Starting on Amanda 10/01/13 at 0858, Until Amanda 10/01/13 at 1043, Anesthesia Intra-op, Routine Given 10/01/2013 8:58 AM EST 160 mcg propofol (DIPRIVAN) 10 mg/mL bolus injection Given 7:40 AM EST 200 mg (Anesthesia) PRN, Starting on Amanda 10/01/13 at 0740, Until Amanda 10/01/13 at 1043, Anesthesia Intra-op propofol (DIPRIVAN) infusion New Bag 10/01/2013 7:49 AM 50 mcg/kg/min 27.2 mL/hr CONTINUOUS PRN, Starting on EST Amanda 10/01/13 at 0749, Until Amanda 10/01/13 at 1043, Anesthesia Intra-op, Routine vecuronium (NORCURON) injection Given 10/01/2013 8:42 AM EST 3 mg PRN, Starting on Amanda 10/01/13 at 0740, Until Amanda 10/01/13 at 1043, Anesthesia Intra-op, Routine Given 10/01/2013 7:40 AM EST 10 mg documented in this encounter Care Teams Field Technician Relationship Specialty Start Date End Date Jacob Adams MD PCP - General 07/11/10 12/17/16 [address] [facility] [address] [place] [address] documented as of this encounter
--- OUTSIDE RECORDS SUMMARY | 2022-03-08 01:47 | XMS_ITS | Encounter Summary ---
:1970 Author Organization [facility] [place] [address] Care Team Providers Name Role Phone Jacob Adams MD Primary Care Provider [phone] Reason for Visit Reason Comments Follow-up Encounter Details Date Type Department Care Team Description 09/16/2014 Office Visit Neurosurgery at [facility] Alan Hemphill, Osteoarthritis of spine [facility] with radiculopathy, [facility] [place] [address] [place] [phone] [place] [address] Social History Tobacco Use Types Packs/Day Years [...] Sign Reading Time Taken Comments Blood Pressure 133/86 09/16/2014 9:35 AM EST Pulse 77 09/16/2014 9:35 AM EST Temperature - - Respiratory Rate - - Oxygen Saturation - - Inhaled Oxygen Concentration - - Weight 98.8 kg (217 lb 12.8 oz) 09/16/2014 9:35 AM EST Height 175.3 cm (5' 9) 09/16/2014 9:35 AM EST Body Mass Index 32.16 09/16/2014 9:35 AM EST documented in this encounter Progress Notes Alan Hemphill MD - 09/16/2014 2:37 PM EST NS Staff Patient seen with ; my findings confirm those as outlined; we plan for MRI +/- Gd and follow-up after that; all questions answered. Marciano Crews MD - 09/16/2014 10:20 AM EST Mr. Blair is a 43-year-old male who is known to the Neurosurgery Service dating back to 1999. His most recent surgery was this past September which was an L3-4 laminectomy and diskectomy. At subsequent followups and on this one today, he states that his preop symptoms, notably right leg pain, have improved substantially since the surgery. Today he presents complaining of some lower back pain, bilateral lower extremity pain most pronounced in the posterior calf regions, and he feels anxious that his symptoms may worsen. He reports no other concerns or complaints. On exam, the patient is in no apparent distress. His strength is 5/5 throughout both lower extremities. Deep tendon reflexes are diminished at the right patella which is 1+, otherwise they are 2+ throughout. His gait is normal. His lower back incision is clean, dry and intact with no palpable underlying fluid collections, and the overlying skin is nonerythematous. Mr. Roland is a 43-year-old male who is known to the Neurosurgery Service. His most recent procedure was this past September consisting of an L3-4 laminectomy and diskectomy. While his preoperative symptoms have generally improved, he presents today complaining of some generalized low back pain and posterior lower extremity pain. He seems to be somewhat anxious about these symptoms and is worried that they may worsen in the future. He is also concerned that the symptoms might be a result of worsening pathology or perhaps scar tissue from his previous surgeries. We feel that a repeat MRI of his lumbar spine would be reasonable to access these possibilities. This will be scheduled, and in the interim he will contact us should any further questions or concerns arise. I saw and evaluated the patient with Dr. Hemphill who agrees with the above assessment and plan. 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
--- OUTSIDE RECORDS SUMMARY | 2022-03-08 01:47 | XMS_ITS | Encounter Summary ---
:1970 [place] [address] Care Team Providers Name Role Phone Jacob Rene MD Primary Care Provider [phone] Encounter Details Date Type Department Care Team Description 10/01/2013 Surgery Main Operating Room Sofía Hemphill MD LAMINOTOMY, [facility] DECOMPRESSION, [facility] DR DICKAMINOLADONNA, [facility] NEUROSURGERY ([facility] [address] [place] [address] [place] [address] [phone] Social History Tobacco Use Types Packs/Day Years [...] Sign Reading Time Taken Comments Blood Pressure 129/79 10/01/2013 10:34 AM EST Pulse 118 10/01/2013 10:34 AM EST Temperature 37 ??C (98.6 ??F) 10/01/2013 10:34 AM EST Respiratory Rate 21 10/01/2013 10:34 AM EST Oxygen Saturation 92% 10/01/2013 10:34 AM EST Inhaled Oxygen Concentration - - Weight - - Height - - Body Mass Index - - documented in this encounter Discharge Instructions Patient InstructionsJe Barnes PA - 10/02/2013 10:12 AM EST Primary Reason for Hospitalization: s/p Lumbar discectomy Condition at Discharge: stable Discharge Instructions for Spinal Surgery CALL YOUR PHYSICIAN IF: 1. You have a fever greater than 101 degrees Farenheit within one month of your surgery. 2. You have worsening back/neck pain, not controlled with your pain medication. 3. You begin having new trouble moving your arms or legs. 4. You develop pain, burning, urgency/frequency with urination. 5. You develop redness, swelling, or milky or watery drainage from your wound. Prescriptions*: The following have been prescribed to control your discomfort after surgery: (X) Narcotic pain medications, such as Percocet, Vicodin, oxycodone or Dilaudid 1. DO NOT use alcohol, drive, or operate heavy or complex machinery while taking these medications. Narcotic pain medications may cause constipation. Stool softeners, such as Colace; mild laxatives, such as Milk of Magnesia, Sennakot, or Ducolax tabs; or enemas may be used if needed and are dnox-wtd-xwtosdf (OTC) medications available at most [facility]. Prunes or prune juice, taken daily, can also be helpful for constipation treatment or pre vention and are available at most [employer]. Driving Restrictions*: None Activities: Discuss return to work or school with your surgeon. No heavy lifting. You may lift what is comfortable to lift with one arm. Nothing greater than 3-5 pounds until re-evaluated by your physician. Avoid pushing and/or pulling objects. No washing lim, windows, or floors, and no vacuuming or lifting heavy laundry or grocery bags. No shoveling, mowing lawns, climbing onto roofs or up ladders and no painting. Avoid prolonged periods of straight-back sitting (e.g., no more than 20 minutes at a time), withoutchanging your position. No bending, twisting, or lifting. It is better to bend at the knees. You will be advised at your follow-up appointment when you may resume these activities. Diet: Eat a well-balanced diet. Fresh fruits, vegetables and fiber-containing foods are recommended. Thiswill assist in wound healing. Recommendations: Take it easy for two weeks. Remember, If it hurts, don't do it. Take several slow, short walks each day for the first two weeks, and gradually increase your distance. We recommend at least 4 times a day. You can go up and down stairs, but take your time and make sure your feet are securely placed on each step. You can resume sexual activity over the next several weeks. You should be positioned on your back or side. Ankle pump exercises (like pressing and releasing the gas pedal) should be done several times each day until you are back to your normal activities. Wound Care: - You may remove the sterile dressing 2 days after surgery. After 4 days, you can shower per usual routine and wash the incision area gently. Pat incision dry with a clean, dry towel. Do not submerge the wound under water (avoid spas, pools and bathtubs) until it is fully healed. Do not use creams, oils, or ointments on the wound. Keep the wound open to air if it is not draining. See follow-up appointments below for removal of sutures/prabha. Comfort: Some incision soreness can be expected. Take your pain medication as needed and prescribed. Taper use of pain medication as pain lessens. Follow-up Appointments: (X) Please follow-up in Neurosurgery Clinic with: (X)Dr. Hemphill in 4-6 weeks. Please call the Neurosurgery Clinic if you have not received a scheduled appointment in the mail within 2-3 weeks. (X) Please follow-up for staple removal in 10-14 days. (X)With your Primary Care Provider (X)You have absorbable sutures. They will absorb on their own. Steri strips will flake-off gradually. Important Phone Numbers: Outpatient Nurse: Marilyn Guerra Inpatient Nurses: Neurosurgical Resident Manager Employee Benefits (after 5pm or before 8am): Neurosurgery offices (weekdays between 8am-5pm): Dr. Hemphill: Dr. Bowser: Pediatric Patients , Adult [phone] [address] Adair: Dr. Bui: Dr. Peraza: Dr. Alejandra Je Barnes, Physician Invertebrate Paleontologist Fernanda Malik, Physician Invertebrate Paleontologist Je Kidd, Physician Invertebrate Paleontologist Minnie North, Nurse Practitioner Your surgeon may not be Manager Employee Benefits, especially during the night or on weekends, so be ready to tell about yourself and your surgery when you call. CC: Primary Care Physician: JACOB RENE MD documented in this encounter Progress Notes Lamar Howard RN - 10/02/2013 12:40 PM EST Pt d/c to home per md order. Patient AOx4 hrr, lung sounds clear, no n/v sob or chest pain at time of discharge. +bs, lbm prior to admission, voiding clear yellow urine. Patient ambulating independently at this time. Pain well controlled with tylenol. All LDA's removed. All belongings home with patient. Prescriptions given to patient, all discharge instructions reviewed with patient. All questions answered. Please see flowsheet for full assessment. LAMAR HOWARD RN Marciano Crews MD - 10/01/2013 9:04 PM EST Neurosurgery - Inpatient Postop Note ID: Name: Norm Blair, 42 y.o. male S: 42 y.o. male s/p L3-4 laminectomy, discectomy -KASH -Denies STAUFFER, N/V, SOB, CP, palpitations -Pain well controlled O: Vitals: Filed Vitals: 10/01/13 1245 10/01/13 1300 10/01/13 1458 10/01/13 1801 BP: 129/88 128/88 112/79 Pulse: 78 66 84 Temp: 36.7 ??C (98.1 ??F) 36.6 ??C (97.9 ??F) 36.8 ??C (98.2 ??F) TempSrc: Oral Oral Oral Resp: Height: 176.5 cm (5' 9.5) Weight: 90.719 kg (200 lb) SpO2: 97% 94% 96% Exam: Gen: NAD CV: RR Resp: Breathing non-labored Abd: S/ND, benign Incision: C/D/I. No hematoma, seroma, or fluid collections noted. Dressing dry. Neuro: -AAOx3 -PERRL. EOMI. -Motor: RUE:5/5 LUE:5/5 RLE: 5/5 LLE: 5/5 -No pronator drift -Sensation intact to LT x 4 A/P: 42 y.o. male s/p lumbar lami,. Neurologically stable. Cont with post-op orders as before. Divina Machado RN - 10/01/2013 2:15 PM EST Patient arrived to floor from PACU alert and oriented x 3. Patient states that pain is tolerable. Educated and discussed pain management with patient. Patient verbalizes understanding of pain control. Patient denies CP/SOB. See my assessment on flowsheet. Oriented patient to room, call meeks is within reach. Will continue to monitor. David Tavares RN - 10/01/2013 10:39 AM EST Pt to PACU placed on monitor alarms noted and appropriate for Pt. Admission assessment on going see PACU phase one flow sheet 1050 SPO2 88% 2L NC placed 1135 family in to bed side 1200 Pt states pain 4-5/10 pain acceptable at this level per Pt, meets criteria for trans to room atthis time Marciano Crews MD - 10/01/2013 7:04 AM EST Neurosurgery - Preop H&P Date & Time: 10/01/2013 7:04 AM ID: Norm Blair, 42 y.o. male, HPI: 42 y/o M presents for laminectomy, discectomy with Dr. Hemphill. Since sen in clinic, no changes in symptoms. Denies any recent illness or changes to overall health status. No history of anticoagulation or antiplatelets. Past Medical Hx: No past medical history on file. No past surgical history on file. Medications: No current facility-administered medications on file prior to encounter. No current outpatient prescriptions on file prior to encounter. Allergies: Allergies Allergen Reactions ??? Gluten ciliac disease Family Hx: No family history on file. Social Hx: History Social History ??? Marital Status: Spouse Name: N/A Number of Children: N/A ??? Years of Education: N/A Social History Main Topics ??? Smoking status: Never Smoker ??? Smokeless tobacco: Never Used ??? Alcohol Use: Yes Comment: social ??? Drug Use: No ??? Sexually Active: Other Topics Concern ??? Not on file Social History Narrative ??? No narrative on file ROS: Constitutional: No recent weight loss, fevers, chills, night sweats. HEENT: No recent visual changes, hearing changes. Cardiovascular: No chest pain, palpitations. Pulmonary: No shortness of breath, cough, wheezing. GI: No abdominal pain, vomiting, change in bowel pattern. : No dysuria, urinary retention, urinary incontinence. MS: No new joint pain. Endo:No heat/cold intolerance, polyuria. Skin: No new rashes. Heme: No easy bruising, no bleeding problems. Vitals: Filed Vitals: 10/01/13 0643 BP: 131/89 Pulse: 70 Temp: 36.4 ??C (97.5 ??F) TempSrc: Temporal Resp: 16 SpO2: 96% Physical Exam: Gen: NAD. CV: RRR, no M/R/G Resp: CTAB, no W/R/R GI: S/NT/ND. No organomegaly. BS+ Neuro: Mental Status/Cognitive: Awake, alert, oriented x3 Cranial Nerves: PERRL CN II - Visual acuity and mera grossly intact CN III, IV, - EOMI CN V - Sensation intact in V1,2 and 3 distributions CN VII - No facial asymmetry/droop CN VIII - Intact hearing bilaterally to finger rub CN IX, X - Palate and uvula midline CN XI - Trapezius 5/5 bilat CN XII - Tongue midline Tone: Normal Power: Segment Muscle Action Left Right C5 Biceps Elbow flexion 5 5 C6 Extensor carpi radialis Wrist extension 5 5 C7 Triceps Elbow extension 5 5 C8, T1 Hand intrinsics Grasp 5 5 L2 Iliopsoas Hip flexion 5 5 L3 Quadriceps Knee extension 5 5 L4 Tibialis anterior Dorsiflexion 5 5 L5 Extensor hallucis Great toe extension 5 5 S1 Gastrocnemius Plantar flexion 5 5 Gait: Normal gait Sensation in the extremities: Light touch: Intact x 4 Radiology: Assessment/Plan: 42 y/o M presents for laminectomy and discectomy with Dr. Hemphill. Denies any recent illness or overallchanges to health status. Agrees to proceed with surgery as scheduled. documented in this encounter Miscellaneous Notes Miscellaneous - Provider, Scanning - 10/03/2013 12:21 PM EST Miscellaneous - Provider, Scanning - 10/03/2013 12:21 PM EST Discharge Summary - Je Barnes PA - 10/02/2013 10:13 AM EST Inpatient - Discharge Summary Patient Name: Norm Blair Patient Age: 42 y.o. Birthdate: 1970 Admit date: 10/01/2013 Discharge date and time: 10/02/13 Attending Physician: Sofía Hemphill MD Discharge Diagnoses (Hospital Problems): Active Hospital Problems Diagnosis ??? Herniated lumbar disc without myelopathy Resolved Hospital Problems Diagnosis Date Resolved No resolved problems to display. Operations/Major Procedures: 10/01/13 s/p L3-4 laminectomy, discectomy, Dr Hemphill History of Presentation: Norm Blair is a 42-year-old man who had several prior lumbar procedures, developed right-sided legpain, and MR demonstrated right-sided disk herniation at the L3-4 level. Hospital Course: Patient was admitted 10/01/13 and was brought to the OR for uncomplicated L3-4 laminectomy, discectomy by Dr Hemphill. At the time of operation, there was a herniated disk at the L3-4 level on the right. There was a portion that had migrated subligamentous below the disk space, 3-4, underneath the nerve root. Post-op he remained stable with minimal pain. He is now felt stable for d/c to home. Important Studies and Lab Data: Lab Results Component Value Date/Time WBC 7.8 10/02/2013 4:51 AM HGB 14.1 10/02/2013 4:51 AM HCT 39.8* 10/02/2013 4:51 AM PLATELET 147 10/02/2013 4:51 AM NA 138 10/02/2013 4:51 AM K 3.9 10/02/2013 4:51 AM CL 101 10/02/2013 4:51 AM CO2 26 10/02/2013 4:51 AM BUN 14 10/02/2013 4:51 AM CREATININE 0.91 10/02/2013 4:51 AM Pending Studies and Lab Data: None Discharge Conditions/Prognosis: Stable Discharge to: Home Discharge Medications: Norm Blair Home Medication Instructions TERRENCE:[id number] Printed on:10/02/13 1033 Medication Information acetaminophen (TYLENOL) 325 mg tablet Take 2 tablets by mouth every 4 hours as needed for Pain (mild pain). oxyCODONE (ROXICODONE) 5 mg immediate release tablet Take 1-2 tablets by mouth every 4 hours as needed for Pain (mild to moderate pain). Updated Allergies/ADRs: Allergies Allergen Reactions ??? Gluten ciliac disease Follow-up Recommendations for Providers: See below Instructions Given to Patient at Discharge: Provider Instructions Primary Reason for Hospitalization: s/p Lumbar discectomy Condition at Discharge: stable Discharge Instructions for Spinal Surgery CALL YOUR PHYSICIAN IF: 1. You have a fever greater than 101 degrees Farenheit within one month of your surgery. 2. You have worsening back/neck pain, not controlled with your pain medication. 3. You begin having new trouble moving your arms or legs. 4. You develop pain, burning, urgency/frequency with urination. 5. You develop redness, swelling, or milky or watery drainage from your wound. Prescriptions*: The following have been prescribed to control your discomfort after surgery: (X) Narcotic pain medications, such as Percocet, Vicodin, oxycodone or Dilaudid 1. DO NOT use alcohol, drive, or operate heavy or complex machinery while taking these medications. Narcotic pain medications may cause constipation. Stool softeners, such as Colace; mild laxatives, such as Milk of Magnesia, Sennakot, or Ducolax tabs; or enemas may be used if needed and are pgwr-nva-cekxscm (OTC) medications available at most [facility]. Prunes or prune juice, taken daily, can also be helpful for constipation treatment or pre vention and are available at most supermarkets. Driving Restrictions*: None Activities: Discuss return to work or school with your surgeon. No heavy lifting. You may lift what is comfortable to lift with one arm. Nothing greater than 3-5 pounds until re-evaluated by your physician. Avoid pushing and/or pulling objects. No washing lim, windows, or floors, and no vacuuming or lifting heavy laundry or grocery bags. No shoveling, mowing lawns, climbing onto roofs or up ladders and no painting. Avoid prolonged periods of straight-back sitting (e.g., no more than 20 minutes at a time), withoutchanging your position. No bending, twisting, or lifting. It is better to bend at the knees. You will be advised at your follow-up appointment when you may resume these activities. Diet: Eat a well-balanced diet. Fresh fruits, vegetables and fiber-containing foods are recommended. Thiswill assist in wound healing. Recommendations: Take it easy for two weeks. Remember, If it hurts, don't do it. Take several slow, short walks each day for the first two weeks, and gradually increase your distance. We recommend at least 4 times a day. You can go up and down stairs, but take your time and make sure your feet are securely placed on each step. You can resume sexual activity over the next several weeks. You should be positioned on your back or side. Ankle pump exercises (like pressing and releasing the gas pedal) should be done several times each day until you are back to your normal activities. Wound Care: - You may remove the sterile dressing 2 days after surgery. After 4 days, you can shower per usual routine and wash the incision area gently. Pat incision dry with a clean, dry towel. Do not submerge the wound under water (avoid spas, pools and bathtubs) until it is fully healed. Do not use creams, oils, or ointments on the wound. Keep the wound open to air if it is not draining. See follow-up appointments below for removal of sutures/prabha. Comfort: Some incision soreness can be expected. Take your pain medication as needed and prescribed. Taper use of pain medication as pain lessens. Follow-up Appointments: (X) Please follow-up in Neurosurgery Clinic with: (X)Dr. Hemphill in 4-6 weeks. Please call the Neurosurgery Clinic if you have not received a scheduled appointment in the mail within 2-3 weeks. (X) Please follow-up for staple removal in 10-14 days. (X)With your Primary Care Provider (X)You have absorbable sutures. They will absorb on their own. Steri strips will flake-off gradually. Important Phone Numbers: Outpatient Nurse: Marilyn Guerra Inpatient Nurses: Neurosurgical Resident Manager Employee Benefits (after 5pm or before 8am): Neurosurgery offices (weekdays between 8am-5pm): Dr. Hemphill: Dr. Bowser: Pediatric Patients , Adult [phone] Dr. Adair: Dr. Bui: Dr. Peraza: Dr. Alejandra Je Barnes, Physician Invertebrate Paleontologist Fernanda Malik, Physician Invertebrate Paleontologist Je Kidd, Physician Invertebrate Paleontologist Minnie North, Nurse Practitioner Your surgeon may not be Manager Employee Benefits, especially during the night or on weekends, so be ready to tell about yourself and your surgery when you call. CC: Primary Care Physician: JACOB RENE MD Future Appointments and Orders Future Appointments: Provider: Department: Dept Phone: Center: 11/11/2013 10:30 AM Sofía Hemphill MD Neurosurgery [phone] [facility] Electronically Signed By: RUBINA MEZA 10/02/2013 Care Management - Zeferino Means RN - 10/02/2013 9:05 AM EST Office of Care Management Clinical Help Desk Engineer (CRC) INITIAL ASSESSMENT Room # 315-A Chart reviewed. Patient and plan of care discussed in morning multidisciplinary rounds. REASON for HOSPITALIZATION: 42 y.o. male s/p L3-4 laminectomy, discectomy PCP:JACOB RENE MD [id number] [facility] [address] PMHx: See e-Dh for complete history. CURRENT STATUS: Remains at baseline level of function. SOCIAL/FAMILY SUPPORTS: INSURANCE COVERAGE/FINANCIAL ISSUES: [employer] REHAB TEAM CONSULTS: Not indicated at this time. SPRING FITTER: Not indicated at this time. ASSESSMENT/PLAN: Nursing assessment reviewed and spoke with bedside RN. No new post hospital care needs have been identified. No concerns have been voiced by patient or family requiring CRC intervention. Will continue to be available should needs arise. Plan of Care - Leona Flores RN - 10/02/2013 12:31 AM EST Problem: Pain, Acute (Adult, Obstetric) Goal: Acute Pain: Acceptable Pain Control/Comfort Level - Pain, Acute (Adult, Obstetric) Outcome: Therapy, goal partially met Pt's pain has been controlled throughout shift with PRN medication as per MAR. Pt rates pain 2-6/10.Pt is currently resting comfortably, will continue to monitor. Problem: Trauma/Injury Risk (Adult, Obstetric) Goal: Trauma/Injury Risk: Absence of Trauma/Injury/Falls Outcome: Therapy, goal partially met Pt is oriented to their environment and situation and understands they are at risk to fall. Pt ringsappropriately for nurse when needing assistance. Call meeks is within reach, upper siderails are raised, nonskid footwear is on and Masimo is connected. Pt has remained free from falls this shift, will continue to monitor. Problem: Pressure Ulcer Risk (Using Ben Scale) (Adult, Obstetric) Goal: Pressure Ulcer Risk (using Ben Scale): Tissue Integrity Outcome: Therapy, goal partially met Pt's incisional dressing is clean, dry, and intact with minimal drainage and otherwise skin remains free from areas or redness or breakdown. Pt is able to turn self as needed. Will continue to monitor. Miscellaneous - Provider, Scanning - 10/01/2013 3:55 PM EST Op Note - Sofía Hemphill MD - 10/01/2013 10:20 AM EST [facility] [place] Operative Note Patient Name: Norm Blair : [id number] MR#: [id number] Case Date: 10/01/2013 Surgeon: Surgeon(s) and Role: * Sofía Hemphill MD - Primary * Marciano Crews MD - Resident-Surgeon Abraham Preoperative diagnosis: L3-4 HNP Postoperative diagnosis: L3-4 HNP Procedure(s): LAMINOTOMY, DECOMPRESSION, FORAMINOTOMY, LUMBAR General Estimated Blood Loss: 25cc Indications for Procedure: Norm Blair is a 42-year-old man who had several prior lumbar procedures, developed right-sided leg pain, and MR demonstrated right-sided disk herniation at the L3-4 level. Operative Findings: At the time of operation, there was a herniated disk at the L3-4 level on the right. There was a portion that had migrated subligamentous below the disk space, 3-4, underneath the nerve root. There was no CSF seen at any time. Operative Procedure: The patient was taken to the operating room, placed in supine position. After adequate general endotracheal anesthesia was achieved, the patient was rolled into the prone position on the Waldo frame. Lumbar region was shaved, prepped and draped in a sterile manner, and a linear incision carried sharply through the skin and subcutaneous tissue. Using Bovie electrocautery, subperiosteal dissection of the L3 lamina and spinous process carried out and a lateralizing image obtained to confirm the level of the dissection. The L3 and L4 spinous process and lamina were exposed and using a high-speed drill to thin the inferior edge of the lamina of L3, at this point the operating microscope was introduced into the field and using Kerrison rongeurs a laminotomy of the L3 lamina carried out. The underlying ligament was identified and opened sharply and the underlying dura visualized. Using Kerrison rongeurs, the ligament was removed and the nerve root inspected. This was retracted medially and underneath this there were large epidural veins, which were coagulated with bipolar cautery, and at this point the bulging disk at the 3-4 level was noted. The disk space was incised and the disk material removed using a series of rongeurs. Further exploration demonstrated a portion of the disk that had herniated underneath the ligament inferiorly underneath the nerve root. This was also removed. The nerve root was inspected and found to be free of any further compression. The wound was copiously irrigated, the fascia closed with interrupted Vicryl sutures, the subcutaneous tissue closed with interrupted Vicryl sutures, and the skin closed with prabha. The patient tolerated the procedure well and was returned to the postanesthesia care unit in stable satisfactory condition. OR Attestation - Sofía Hemphill MD - 10/01/2013 10:19 AM EST Attestation: Case Date: 10/01/2013 I was present and I participated during the entire procedure (does not need to include opening and closing). SOFÍA HEMPHILL MD 10/01/2013 Brief Op Note - Sofía Hemphill MD - 10/01/2013 10:17 AM EST Brief Operative Note Patient Name: Norm Blair : [id number] MR#: [id number] Case Date: 10/01/2013 Surgeon: Surgeon(s) and Role: * Sofía Hemphill MD - Primary * Marciano Crews MD - Resident-Surgeon Abraham Preoperative diagnosis: L3-4 HNP Postoperative diagnosis: L3-4 HNP Procedure(s): LAMINOTOMY, DECOMPRESSION, FORAMINOTOMY, LUMBAR Anesthesia: General Fluids: 1700cc Estimated Blood Loss: 25cc documented in this encounter Plan of Treatment Pending Results Name Type Priority Associated Diagnoses Date/Ti me XR Fluoro OR c-arm Imaging Routine 4 10:38 AM EST storage only Scheduled Orders Name Type Priority Associated Diagnoses Order S chedule XR Fluoro OR c-arm Imaging Routine Once PRN (for Radiant storage only use) for 1 Occu rrences starting 2013 until 10/01/2013 documented as of this encounter Procedures Procedure Name Priority Date/Time Associated Diagnosis Comme nts DIFFERENTIAL, Routine 10/02/2013 4:51 AM Results for this AUTOMATED EST procedure are i n the results section. CBC (WITH DIFF) Routine 10/02/2013 4:51 AM Result s for this EST procedure are i n the results section. BASIC METABOLIC Routine 10/02/2013 4:51 AM Result s for this PANEL (NON-FASTING) EST procedur e are in the results section. SURGICAL PATHOLOGY Routine 10/01/2013 10:52 AM Re sults for this REPORT EST procedure are i n the results section. SPECIMEN TO Routine 10/01/2013 9:57 AM Results f or this PATHOLOGY EST procedure are i n the results section. LAMINOTOMY, Yes 10/01/2013 7:20 AM L3-4 HNP DECOMPRESSION, EST FORAMINOTOMY, LUMBAR (WRVU 13.18) TYPE AND SCREEN, STAT 10/01/2013 6:21 AM SDP (FUTURE EST SURGERY, [facility] SAME DAY PROGRAM ONLY) ABO/RH TYPING STAT 10/01/2013 6:21 AM Results for this EST procedure are i n the results section. ANTIBODY SCREEN STAT 10/01/2013 6:21 AM Result s for this EST procedure are i n the results section. documented in this encounter Results (ABNORMAL) Differential, Automated (10/02/2013 4:51 AM EST) [facility] gist Method Time Signature Neutrophils % 77.4 (H) 34.0 - CERNER 71.0 % MILLENNIUM Neutr Abs (ANC) 6.01 1.50 - CERNER 6.30 MILLENNIUM x10(3)/mc L Lymphocytes % 14.2 (L) 19.0 - CERNER 53.0 % MILLENNIUM Lymphocytes Abs 1.1 1.0 - 3.6 CERNER x10(3)/mc MILLENNIUM L Monocytes % 7.9 4.0 - CERNER 13.0 % MILLENNIUM Monocyte Abs 0.6 0.2 - 1.0 CERNER x10(3)/mc MILLENNIUM L Eosinophils % 0.1 0.0 - 7.0 CERNER % MILLENNIUM Eosinophils Abs 0.0 0.0 - 0.5 CERNER x10(3)/mc MILLENNIUM L Basophils % 0.1 0.0 - 2.0 CERNER % MILLENNIUM Basophils Abs 0.0 0.0 - 0.2 CERNER x10(3)/mc MILLENNIUM L Immature Gran % 0.30 0.00 - CERNER 0.66 % MILLENNIUM Comment: Immature granulocytes(IG's)percentage an d absolute count will include metamyelocytes, myelocytes, and promyelo cytes. Blood smears from CBCs yielding IG's will be scanned manually for concor dance. If this scan disagrees with the automated IG or if promyelocytes are not ed, a manual differential will be performed. Ria Gran Abs 0.02 0.00 - 0.05 x10(3)/mcL CER NER MILLENNIUM Specimen Anatomical Collection Method Collection Time Receive d Time (Source) Location / / Volume Laterality Blood specimen 10/02/2013 4:51 AM 014 5:02 (specimen) EST AM EST Sofía Hemphill MD HEMATOLOGY ORDERABLES Performing Organization Address City/State/ZIP Code Phon e Number [place] [phone] CERNER MILLENNIUM Basic Metabolic Panel (non-fasting) (10/02/2013 4:51 AM EST) athologist Signature Glucose Lvl 111 60 - 199 CERNER mg/dL MILLENNIUM Comment: Diabetes: >=200 mg/dL plus symp toms BUN 14 10 - 20 mg/dL CERNER MILLENNIU M Creatinine 0.91 0.80 - 1.50 mg/dL CERNER MILL ENNIUM Comment: Please note that the pediatric reference intervals supplied above were not validated at [facility]. Results from pediatri c patients should be interpreted in conjunction to the patient's age, height and muscle mass. Sodium 138 135 - 145 mmol/L CERNER NI NIUM Potassium 3.9 3.5 - 5.0 mmol/L CERNER NI NIUM Comment: Please note: ??Patients with WBC >100,00 0 may have falsely elevated Potassium levels. ??For accurate Potassium quantif ication in these patients send serum separator tube (gold top) for subsequent determinations. ??Contact the Clinical Chemistry Laboratory if there are any qu estions. Chloride 101 98 - 107 mmol/L CERNER MILLENN IUM CO2 26 22 - 31 mmol/L CERNER MILLENNI UM Anion Gap 11 5 - 15 mmol/L CERNER MILLENNIU M Calcium 8.8 8.5 - 10.5 mg/dL CERNER NI NIUM Estimated GFR >60 >=60 CERNER MILLENNIU M Comment: This estimated GFR (eGFR) value was calc ulated using the MDRD equation which has been validated on patients between t he ages of 18 and 70. The MDRD should not be used to assess kidney function in patients < 18 years of age or in patients with extremes of body mass, or in patients with acute kidney failure. This value should be multiplied by 1.2 f or patients. For further information please copy and past e the following links into your internet browser. http://www.nkdep.nih.gov/lab-evaluation. shtml http://www.kidney.org/professionals/ Specimen Anatomical Collection Method Collection Time Receive d Time (Source) Location / / Volume Laterality Blood specimen 10/02/2013 4:51 AM 014 5:02 (specimen) EST AM EST Resulting Agency Comment Spec In Lab Sofía Hempihll MD CHEMISTRY ORDERABLES Performing Organization Address City/[facility]/ZIP Code Phon e Number [address] CERNER MILLENNIUM (ABNORMAL) CBC (with Diff) (10/02/2013 4:51 AM EST) athologist Signature WBC 7.8 4.0 - 10.0 CERNER x10(3)/mcL MILLENNIUM RBC 4.59 (L) 4.63 - CERNER 6.08 MILLENNIUM x10(6)/mcL Hemoglobin 14.1 13.7 - CERNER 17.5 gm/dL MILLENNIUM Hematocrit 39.8 (L) 40.0 - CERNER 51.0 % MILLENNIUM MCV 86.7 79.0 - CERNER 92.0 fL MILLENNIUM MCH 30.7 25.6 - CERNER 32.2 pg MILLENNIUM MCHC 35.4 32.0 - CERNER 36.5 gm/dL MILLENNIUM Platelets 147 145 - 370 CERNER x10(3)/mcL MILLENNIUM RDWSD 39.1 35.0 - CERNER 46.0 fL MILLENNIUM RDWCV 12.4 10.9 - CERNER 14.4 % MILLENNIUM MPV 10.0 9.0 - 12.0 CERNER fL MILLENNIUM Specimen Anatomical Collection Method Collection Time Receive d Time (Source) Location / / Volume Laterality Blood specimen 10/02/2013 4:51 AM 014 5:02 (specimen) EST AM EST Resulting Agency Comment Spec In Lab Sofía Hemphill MD HEMATOLOGY ORDERABLES Performing Organization Address City/[facility]/ZIP [place] [address] CERNER MILLENNIUM Surgical Pathology Report (10/01/2013 10:52 AM EST) [facility] gist Method Time Signature Surgical CERNER Pathology ? [facility] [place] ? Provider: ?? SOFÍA HEMPHILL ? Pt. Name: ?? RAND INES, NORM Johnson ? Acc #: ?[id number] ?Pt. MRN: ?[id number] ? Col Date: ?? 4 ? /Sex: ?1970,(42 years),Male ? Rec Date: ?? 10/01/2013 ? LOC: ?3WST ? SURGICAL PATHOLOGY ? ---Pathologic Diagnosis--- ? L3-4 disc. ?Gross surgical pathology examination. ? Cr-0 ? 10/01/13 ? EJR ? 10/01/13 Verified by: ? Louise WOLFE, Shine Lund ? Pathologist ? (Electronic Si gnature) ? The attending pathologist whose signature appears o n this report has ? reviewed all diagnostic slides and has edited the sofya ss and/or ? microscopic portion of the report in rendering the fi nal pathologic ? diagnosis. ? ---Microscopic Description--- ? No histological studies performed. ? ---Gross Description--- ? A - Labeled/Fixative: L3-L4 disc, fresh. ? Quantity/Size: Fragments, 1.2 x 1.0 x 0.6 cm. ? Tissue Description: Rubbery, ashton-white and pink-lopez tissue. ? Sections/Processing: No section submitted gross diagnosis only. ?ejr ? ---Clinical Information--- ? Specimen Submitted: ? A - L3-4 disk ? Clinical History: ? L3-4 HNP ? Clinical Diagnosis: ? Same Specimen (Source) Anatomical Collection Method Collection Time Re ceived Time Location / / Volume Laterality 10/01/2013 10:52 AM EST Sofía Hemphill MD PATHOLOGY/CYTOLOGY ORDERABLE S Performing Organization Address City/[facility]/ZIP [facility] [place] [address] [facility] Specimen to Pathology (surgical or derm) (10/01/2013 9:57 AM EST) Specimen Anatomical Collection Method Collection Time Receive d Time (Source) Location / / Volume Laterality AP Specimen 10/01/2013 9:57 AM 4 9:57 EST AM EST [facility]ative [facility] 10/01/2013 9:[address] Specimen requisition ordered. ??Separate Pathology report to follow Sofía Hemphill MD PATHOLOGY/CYTOLOGY ORDERABLE S Performing Organization Address City/[facility]/ZIP [place] [address] CERBANNER MILLENNIUM Antibody screen (10/01/2013 6:21 AM EST) Analysis Performed At Patho logist Time Signature Ab Screen Negative [facility] Ex[facility] [id number] [facility] 949 on: MILLENNIUM Specimen Anatomical Collection Method Collection Time Receive d Time (Source) Location / / Volume Laterality Blood specimen 10/01/2013 6:21 AM 014 6:29 (specimen) EST AM EST Resulting Agency Comment Spec In Lab Sofía Hemphill MD BLOOD BANK ORDERABLES Performing Organization Address City/[facility] [place] [address] CERBANNER SURINDERENNIUM ABO/Rh Typing (10/01/2013 6:21 AM EST) P athologist Signature ABORh Type A Pos CERNER MILLENNIUM Specimen Anatomical Collection Method Collection Time Receive d Time (Source) Location / / Volume Laterality Blood specimen 10/01/2013 6:21 AM 014 6:29 (specimen) EST AM EST Resulting Agency Comment Spec In Lab Sofía Hemphill MD BLOOD BANK ORDERABLES Performing Organization Address City/State/[place] [address] [facility] documented in this encounter Visit Diagnoses Not on filedocumented in this encounter Administered Medications Inactive Administered Medications - up to 3 most recent administrations Medication Order MAR Action Action Date Dose Rate Site acetaminophen (TYLENOL) tablet Given 10/02/2013 12:13 PM EST 650 mg 650 mg 650 mg, Oral, EVERY 4 HOURS PRN, Starting on Amanda 10/01/13 at 1253, Until Sat10/02/13 at 1445, Pain, mild pain, May repeat once in 30 minutes if desired effect not acheived, Routine Given 10/01/2013 10:12 PM EST 650 mg bacitracin injection Given 10/01/2013 8:49 AM EST 10,000 Units ONCE PRN, Starting on Sat10/01/13 at 0849, Until Amanda 10/01/13 at 1228, Intra-Operative (Intra-Procedure), Routine famotidine (PEPCID) tablet 20 mg Given 10/01/2013 10:12 PM EST 20 mg 20 mg, Oral, 2 TIMES DAILY, First dose on Amanda 10/01/13 at 2100, Until Discontinued, If unable to take PO, may give IV, Routine gelatin adsorbable (GELFOAM) sponge Given 10/01/2013 9:01 AM EST 2 each ONCE PRN, Starting on Sat10/01/13 at 0901, Until Amanda 10/01/13 at 1228, Intra-Operative (Intra-Procedure) HYDROmorphone (DILAUDID) injection 0.2-0.4 Given 10/01/2013 11:12 AM EST 0.2 mg mg 0.2-0.4 mg, Intravenous, EVERY 5 MIN PRN, Starting on Amanda 10/01/13 at 1014, Until Amanda 10/01/13 at 1228, Pain, For moderate pain give: 0.2 mg every 5 minute prn For severe pain give: 0.4 mg every 5 minutes prn Maximum dose: 4 mg per hour Hold for respiratory rate less than 10 per minute., PACU Recovery, Routine Given 10/01/2013 10:53 AM EST 0.2 mg lactated ringers infusion 1,000 New Bag 10/01/2013 6:58 AM EST 1,000 mLs 100 mL/hr mL 1,000 mL, at 100 mL/hr, Intravenous, CONTINUOUS, Starting on Amanda 10/01/13 at 0700, Until Amanda 10/01/13 at 1228, Day of Surgery (Day of Procedure) lactated ringers infusion 1,000 New Bag 10/01/2013 8:31 PM EST 1,000 mLs 100 mL/hr mL 1,000 mL, at 100 mL/hr, Intravenous, CONTINUOUS, Starting on Amanda 10/01/13 at 1100, Until Sat10/02/13 at 1020 New Bag 10/01/2013 10:46 AM EST 1,000 mLs 100 mL/hr oxyCODONE (ROXICODONE) immediate release Given 10/01/2013 12:18 PM EST 10 mg tablet 10 mg 10 mg, Oral, EVERY 4 HOURS PRN, Starting on Amanda 10/01/13 at 1031, Until Sat10/02/13 at 1445, Pain, severe pain, May give additional 5 mg in 30 minutes times 1 if pain not relieved., Routine senna-docusate (PERICOLACE) 8.6-50 mg per Given 10/02/2013 8 :36 AM EST 1 tablet tablet 1-4 tablet 1-4 tablet, Oral, 2 TIMES DAILY, First dose on Amanda 10/01/13 at 1315, Until Discontinued, Start with 1 tablet or liquid equivalent orally twice daily and titrate up to achieve: 1. One bowel movement at least every 48 hours, AND 2. Without straining, Routine Given 10/01/2013 10:12 PM EST 2 tablets sodium chloride 0.9 % flush 5 mL Given 10/02/2013 8:43 AM EST 5 mLs 5 mL, Intravenous, 2 TIMES DAILY, First dose on Amanda 10/01/13 at 1315, Until Discontinued, Routine thrombin (Bovine) (THROMBINAR) kit Given 10/01/2013 8:49 AM EST 5,000 Units ONCE PRN, Starting on Amanda 10/01/13 at 0849, Until Amanda 10/01/13 at 1228, Intra-Operative (Intra-Procedure) documented in this encounter Active and Recently Administered Medications Times are shown in EST. Scheduled Medication Order 09/30/2013 10/01/2013 10/02/2013 famotidine (PEPCID) tablet 20 mg (CANCELED) 2212 (Given - Provider: Leona Flores, RN) 0836 (Not Given - Provider: Lamar carlos RN - Reason: Patient/family refused) 20 mg, Oral, 2 TIMES DAILY, First dose o n Amanda 10/01/13 at 2100, Until Discontinued, If unable to take PO, may give IV, Routine senna-docusate (PERICOLACE) 8.6-50 mg per tablet 1-4 tablet (CANCELED) 1315 (Not Given - Provider: Divina Barrios RN - Reason: Patient/family refused - Comment: will begin tonight at 2100)2212 (Given - Provider: Leona Flores RN) 0836 (Given - Provider: Lamar Howard RN) 1-4 tablet, Oral, 2 TIMES DAILY, First d ose on Amanda 10/01/13 at 1315, Until Discontinued, Start with 1 tablet or liquid equivalent orally twice daily and titrate up to achieve: 1. One bowel movement at le ast every 48 hours, AND 2. Without straining, Routine sodium chloride 0.9 % flush 5 mL (CANCELED) 1315 (Not Given - Provider: Divina Barrios RN - Reason: See comment - Comment: IV infusing)2100 (Not Given - Provider: Leona Flores RN - Reason: See comment - Comment: infusing) 0843 (Given - Provider: Lamar Howard RN) 5 mL, Intravenous, 2 TIMES DAILY, First dose on Amanda 10/01/13 at 1315, Until Discontinued, Routine Continuous Medication Order 09/30/2013 10/01/2013 10/02/2013 lactated ringers infusion 1,000 mL (CANCELED) 0728 (New Bag - Provider: Rosalie Murray CRNA)0815 (Anesthesia Volume Adjustment - Provider: Rosalie Murray CRNA)0915 (New Bag - Provider: Rosalie Murray CRNA)0945 (Anesthesia Volume Adjustment - Provider: Rosalie Murray CRNA) 1,000 mL, at 100 mL/hr, Intravenous, CON TINUOUS, Starting Amanda 10/01/13 at 0700, Until Amanda 10/01/13 at 1228, Day of Surgery (Day of Procedure) 1015 (Anesthesia Volume Adjustment - Provider: Rosalie Murray CRNA) lactated ringers infusion 1,000 mL (CANCELED) 0658 (New Bag - Provider: Carolynn Bay RN) 1,000 mL, at 100 mL/hr, Intravenous, CON TINUOUS, Starting Amanda 10/01/13 at 0700, Until Amanad 10/01/13 at 1228, Day of Surgery (Day of Procedure) lactated ringers infusion 1,000 mL (CANCELED) 1046 (New Bag - Provider: David Seymour RN)203 (New Bag - Provider: Leona Flores RN) 1,000 mL, at 100 mL/hr, Intravenous, CON TINUOUS, Starting Amanda 10/01/13 at 1100, Until Sat10/02/13 at 1020 PRN Medication Order 09/30/2013 10/01/2013 10/02/2013 acetaminophen (TYLENOL) tablet 650 mg 22 12 (Given - Provider: Leona Flores RN) 1213 (Given - Provider: Lamar Howard RN) 650 mg, Oral, EVERY 4 HOURS PRN, Startin g Amanda 10/01/13 at 1253, Until Sat10/02/13 at 1445, Pain, mild pain, May repeat once in 30 minutes if desired effect not acheived, Routine bacitracin injection (CANCELED) 0849 (Given - Pr ovider: Sofía Hemphill MD) ONCE PRN, Starting Amanda 10/01/13 at 0849, Until Amanda 10/01/13 at 1228, Intra- Operative (Intra-Procedure), Routine gelatin adsorbable (GELFOAM) sponge (CANCELED) 0901 (Given - Provider: Sofía Hemphill MD) ONCE PRN, Starting Amanda 10/01/13 at 0901, For 1 dose, Intra-Operative (Intra-Procedure) HYDROmorphone (DILAUDID) injection 0.2-0.4 mg (CANCELED) 1053 (Given - Provider: David Seymour RN)1112 (Given - Provider: David Seymour RN) 0.2-0.4 mg, Intravenous, EVERY 5 MIN PRN , Starting Amanda 10/01/13 at 1014, Until Amanda 10/01/13 at 1228, Pain, For moderate pain give: 0.2 mg every 5 minute prn For severe pain give: 0.4 mg every 5 minutes pr n Maximum dose: 4 mg per hour Hold for r espiratory rate less than 10 per minute., PACU Recovery, Routine oxyCODONE (ROXICODONE) immediate release tablet 10 mg (CANCE LED) 1218 (Given - Provider: David Seymour RN) 10 mg, Oral, EVERY 4 HOURS PRN, Starting Amanda 10/01/13 at 1031, Until 10/02/13 at 1445, Pain, severe pain, May give additional 5 mg in 30 minutes times 1 if pain not relieved., Routine oxyCODONE (ROXICODONE) immediate release tablet 5 mg 1218 (See Alternative - Provider: David Seymour RN) 5 mg, Oral, EVERY 4 HOURS PRN, Starting Amanda 10/01/13 at 1031, Until 10/02/13 at 1445, Pain, mild to moderate pain, May give additional 5 mg in 30 minutes times 1 if pain not relieved. 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
--- OUTSIDE RECORDS SUMMARY | 2022-03-08 01:47 | XMS_ITS | Encounter Summary ---
:1970 Author Organization [facility] [place] [address] Care Team Providers Name Role Phone Jacob Adams MD Primary Care Provider [phone] Reason for Visit Reason Comments Follow-up Encounter Details Date Type Department Care Team Description 01/27/2015 Office Visit Neurosurgery at [place] Alan Hemphill MD Chronic back pain [facility] [place] [phone] NEUROSURGERY [place], [place] [address] (Wo rk) Social History Tobacco Use Types [...] Sign Reading Time Taken Comments Blood Pressure 154/94 01/27/2015 11:25 AM EDT Pulse 90 01/27/2015 11:25 AM EDT Temperature - - Respiratory Rate - - Oxygen Saturation - - Inhaled Oxygen Concentration - - Weight 98.5 kg (217 lb 3.2 oz) 01/27/2015 11:25 AM EDT Height 175.3 cm (5' 9) 01/27/2015 11:25 AM EDT Body Mass Index 32.07 01/27/2015 11:25 AM EDT documented in this encounter Progress Notes Alan Hemphill MD - 01/27/2015 12:29 PM EDT Norm Blair returns to [facility]surgery [facility]. He underwent lumbar MRI scan with gadolinium and that is reviewed today. There is some scar at his levels of previous surgery but no acute herniation and no deformity. We had a discussion, although he does have some scarring I do not see any surgical indications here and his current symptoms are at a level that he thinks he can live with at the moment. I think we should leave things as they are. If he were to have more trouble he could always call here. All questions were answered. documented in this encounter Plan of Treatment Not on filedocumented as of this encounter Visit Diagnoses Diagnosis Chronic back pain Backache, unspecified documented in this encounter Care Teams Car Body Designer Relationship Specialty Start Date End Date Jacob Adams MD PCP - General 07/11/10 12/17/[address] [place] [place] [address] documented as of this encounter
--- OUTSIDE RECORDS SUMMARY | 2022-03-08 01:47 | XMS_ITS | Encounter Summary ---
:1970 Author Organization [place] [address] Care Team Providers Name Role Phone Jacob Adams MD Primary Care Provider [phone] Encounter Details Date Type Department Care Team Description 09/04/2013 Hospital Encounter MRI at [facility], [place] [address] Social History Tobacco Use Types Packs/Day Years Used Date Never Smoker Smokeless Tobacco: Never Used Alcohol Use Standard Drinks/Week Comments Yes 0 (1 standard drink = 0.6 oz pure alcoho l) social Alcohol Habits Answer Date Recorded How often do you have a drink containing alcohol? Not asked How many drinks containing alcohol do you have on a typical Not asked day when you are drinking? How often do you have six or more drinks on one occasion? No t asked Comment: social 09/04/2013 Sex Assigned at Date Recorded Not on file documented as of this encounter Last Filed Vital Signs Vital Sign Reading Time Taken Comments Blood Pressure - - Pulse - - Temperature - - Respiratory Rate - - Oxygen Saturation - - Inhaled Oxygen Concentration - - Weight 90.7 kg (200 lb) 09/04/2013 10:24 AM EST Height - - Body Mass Index - - documented in this encounter Miscellaneous Notes Miscellaneous - Provider, Scanning - 09/29/2013 11:36 AM EST documented in this encounter Plan of Treatment Not on filedocumented as of this encounter Procedures Procedure Name Priority Date/Time Associated Diagnosis Comme nts MRI LUMBAR SPINE Routine 09/04/2013 10:40 AM Right leg pain Re sults for this WITH/WO CONTRAST EST procedure a re in the results section. documented in this encounter Results MRI lumbar spine with/WO contrast (09/04/2013 10:40 AM EST) Anatomical Region Laterality Modality L-spine Magnetic Resonance Specimen (Source) Anatomical Collection Method Collection Time Re ceived Time Location / / Volume Laterality 09/04/2013 10:40 AM EST Impressions 09/04/2013 2:27 PM EST Impression: 1. New central and right paracentral disc extrusion at L3-4. ?? 2. Disk degenerative changes described i n detail at individual levels in the body of the report. ?? 3. Mild disc protrusion at the L4-5 leve l which does not efface the ventral thecal sac. ?? Comment: The following findings are so c ommon in people without low back pain that while we report their presence, the y must be interpreted with caution and in the context of the clinical situation . (Reference-Maria Tvik et al, Spine 2001) Findings: (prevalence in patients withou t low back pain), Disk degeneration (decreased T2 signal, height loss, bulge ) (91%), Disk T2-signal loss (83%), Disk height loss (56%), Disk bulge (64%) , Disk protrusion (32%), Annular fissure (38%). Film and interpretation reviewed by the attending Narrative 09/04/2013 2:27 PM EST Examination MR Lumbar Spine W/WO Terry Clinical History recurrent RLE pain and numbness s/p right L5-S1 hemilaminotomy/foraminot karlee in 2008 Technique MRI of the lumbar spine was performed be fore and after the administration of 18 milliliters Magnevist ?? Comparison MRI lumbar spine 11/03/2008 ?? Findings Left-sided laminotomy change L4-5. New l eft-sided laminotomy changes L3-4. ?? Minimal retrolisthesis of L3 on L4. Mild disk degenerative changes disc space narrowing and decreased signal intensity T2 sequence L3-4 at L4-5 and L5-S1. Vertebral bodies maintained in height in the lumbar spine. ??Stable anterior wedge deformity T12. ??Endplate reactive changes posteriorly at L4-5 similar to prior exam. ??The conus demonstrates nor mal size shape and signal intensity and terminates appropriately at the L1 level . No aggressive marrow lesions. No pars defects. ?? Findings at specific levels: T11-12: Usha ular fissure and minimal left paracentral disc protrusion image 3 seri es 5. ?? T12-L1: no disc protrusion central steno sis or foraminal narrowing. ?? L1-2: no disc protrusion central stenosi s or foraminal narrowing. ?? L2-3: No disc protrusion central stenosi s or foraminal narrowing. ?? L3-4: Non enhancing soft tissue central right paracentral extending caudally contacting the right crossing L4 nerve r oot in the right lateral recess. ??Mild effacement of the ventral thecal sac. Fi ndings consistent with new central and right paracentral disc extrusion extendi ng caudally. Enhancing granulation tissue on the left. Mild left far latera l disc protrusion mild to moderate bilateral foraminal narrowing similar to prior exam. ?? L4-5: Enhancing granulation tissue on th e left. Mild right paracentral disc material without effacement of the ventr al thecal sac. Moderate bilateral foraminal narrowing left greater than ri ght. ?? L5-S1: Mild central disc protrusion with out effacement of the ventral thecal sac or contact or displacement of the S1 nerve roots. Moderate bilateral foraminal narrowing. ?? Procedure Note Jose Horn MD - 09/04/2013Formatt ing of this note might be different from the original. Examination MR Lumbar Spine W/WO Terry Clinical History recurrent RLE pain and numbness s/p right L5-S1 hemilaminotomy/foraminot karlee in 2008 Technique MRI of the lumbar spine was performed be fore and after the administration of 18 milliliters Magnevist Comparison MRI lumbar spine 11/03/2008 Findings Left-sided laminotomy change L4-5. New l eft-sided laminotomy changes L3-4. Minimal retrolisthesis of L3 on L4. Mild disk degenerative changes disc space narrowing and decreased signal intensity T2 sequence L3-4 at L4-5 and L5-S1. Vertebral bodies maintained in height in the lumbar spine. Stable anterior wedge deformity T12. Endplate reactive c hanges posteriorly at L4-5 similar to prior exam. The conus demonstrates diane l size shape and signal intensity and terminates appropriately at the L1 level . No aggressive marrow lesions. No pars defects. Findings at specific levels: T11-12: Usha ular fissure and minimal left paracentral disc protrusion image 3 seri es 5. T12-L1: no disc protrusion central steno sis or foraminal narrowing. L1-2: no disc protrusion central stenosi s or foraminal narrowing. L2-3: No disc protrusion central stenosi s or foraminal narrowing. L3-4: Non enhancing soft tissue central right paracentral extending caudally contacting the right crossing L4 nerve r oot in the right lateral recess. Mild effacement of the ventral thecal sac. Fi ndings consistent with new central and right paracentral disc extrusion extendi ng caudally. Enhancing granulation tissue on the left. Mild left far latera l disc protrusion mild to moderate bilateral foraminal narrowing similar to prior exam. L4-5: Enhancing granulation tissue on th e left. Mild right paracentral disc material without effacement of the ventr al thecal sac. Moderate bilateral foraminal narrowing left greater than ri ght. L5-S1: Mild central disc protrusion with out effacement of the ventral thecal sac or contact or displacement of the S1 nerve roots. Moderate bilateral foraminal narrowing. IMPRESSION Impression: 1. New central and right par acentral disc extrusion at L3-4. 2. Disk degenerative changes described i n detail at individual levels in the body of the report. 3. Mild disc protrusion at the L4-5 leve l which does not efface the ventral thecal sac. Comment: The following findings are so c ommon in people without low back pain that while we report their presence, the y must be interpreted with caution and in the context of the clinical situation . (Reference-Jarvik et al, Spine 2001) Findings: (prevalence in patients withou t low back pain), Disk degeneration (decreased T2 signal, height loss, bulge ) (91%), Disk T2-signal loss (83%), Disk height loss (56%), Disk bulge (64%) , Disk protrusion (32%), Annular fissure (38%). Film and interpretation reviewed by the attending Alan Hemphill MD IMG MRI ORDERABLES documented in this encounter Visit Diagnoses Diagnosis Right leg pain Pain in limb documented in this encounter Administered Medications Inactive Administered Medications - up to 3 most recent administrations Medication Order MAR Action Action Date Dose Rate Site gadopentetate dimeglumine Given 09/04/2013 10:28 AM EST 18 mLs (MAGNEVIST) injection 18 mL 18 mL (0.2 mL/kg/dose ? 90.7 kg), Intravenous, ONCE PRN, 1 dose, Starting on Sat09/04/13 at 1025, Until Sat09/04/13 at 1028, Per Protocol, Routine documented in this encounter Care Teams Ice Cream Shop Associate Relationship Specialty Start Date End Date Jacob Adams MD PCP - General 07/11/10 12/17/16 [address] [place] [address] documented as of this encounter
--- OUTSIDE RECORDS SUMMARY | 2022-03-08 01:47 | XMS_ITS | Encounter Summary ---
:1970 Author Organization [facility] [place] [address] Care Team Providers Name Role Phone Jacob Adams MD Primary Care Provider [phone] Reason for Visit Reason Comments Follow-up Encounter Details Date Type Department Care Team Description 09/23/2013 [place] [facility] [place] Hemhpill MD Spondylosis ([facility] Dx) [place] [address] NEUROSURGERY [place], [place] [address] Social History Tobacco Use Types [...] Sign Reading Time Taken Comments Blood Pressure 135/94 09/23/2013 9:07 AM EST Pulse 93 09/23/2013 9:07 AM EST Temperature - - Respiratory Rate - - Oxygen Saturation - - Inhaled Oxygen Concentration - - Weight 90.7 kg (200 lb) 09/23/2013 9:07 AM EST Height 177.8 cm (5' 10) 09/23/2013 9:07 AM EST Body Mass Index 28.7 09/23/2013 9:07 AM EST documented in this encounter Progress Notes Alan Hemphill MD - 09/23/2013 3:27 PM EST Neurosurgery Note Norm Blair returns to Neurosurgery Clinic in followup for his right-sided leg pain. Since being seen last time, he had an epidural injection by Pain Clinic, which made a minimal improvement in his symptoms. We discussed the options here of further conservative treatment or consideration of surgery. We reviewed the risks of surgery including risk of anesthesia, bleeding, infection, injury to the nerve, spinal fluid leakage, epidural scarring, and failure to relieve the symptoms, and we went through that no assurances or guarantees could be given on the likelihood of improvement. He would like to consider his options and he will get back in touch with us on how he would like to proceed. All questions were answered. 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
--- OUTSIDE RECORDS SUMMARY | 2022-03-08 01:47 | XMS_ITS | Encounter Summary ---
:1970 Author Organization [facility] [place] [address] Care Team Providers Name Role Phone Jacob Adams MD Primary Care Provider [phone] Reason for Visit Reason Comments Follow-up Encounter Details Date Type Department Care Team Description 11/11/2013 [place] Visit [place] [facility] [place] Hemphill MD Spondylosis (Primary [facility] Dx) [facility] [place] [address] NEUROSURGERY [phone] [place], [place] [address] Social History Tobacco Use Types [...] Sign Reading Time Taken Comments Blood Pressure 125/104 11/11/2013 10:28 AM EDT Pulse 91 11/11/2013 10:28 AM EDT Temperature - - Respiratory Rate - - Oxygen Saturation - - Inhaled Oxygen Concentration - - Weight 93 kg (205 lb) 11/11/2013 10:28 AM EDT Height 177.8 cm (5' 10) 11/11/2013 10:28 AM EDT Body Mass Index 29.41 11/11/2013 10:28 AM EDT documented in this encounter Progress Notes Alan Hemphill MD - 11/11/2013 1:42 PM EDT Norm Blair returns to Neurosurgery Clinic in followup of his lumbar discectomy. Since being seen last time he is doing very well. He is very pleased with the results of his surgery. He still does have occasional calf pain but in general he is very happy with things. On examination, the wound is nicely healed. Motor strength is full. There is some hamstring tightness on the right. It think it would be reasonable for him to have some physical therapy for range of motion, stretching, and back mechanics and I will see him back in about six weeks' time and we will make a determination of return to work at that time. All questions were answered. 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
--- OUTSIDE RECORDS SUMMARY | 2022-03-08 01:47 | XMS_ITS | Encounter Summary ---
:1970 Author Organization [place] [address] Care Team Providers Name Role Phone Jacob Adams MD Primary Care Provider [phone] Reason for Visit Reason Comments Follow-up to discuss return to work .. . Encounter Details Date Type Department Care Team Description 02/03/2014 [place] [facility] [place] Hemphill MD Spondylosis (Primary [facility] Dx) [place] [address] [address] [phone] NEUROSURGERY [place], [place] [address] Social History Tobacco Use Types [...] Sign Reading Time Taken Comments Blood Pressure 143/92 02/03/2014 10:18 AM EDT Pulse 99 02/03/2014 10:18 AM EDT Temperature - - Respiratory Rate - - Oxygen Saturation - - Inhaled Oxygen Concentration - - Weight 90.7 kg (200 lb) 02/03/2014 10:18 AM EDT Height 175.3 cm (5' 9) 02/03/2014 10:18 AM EDT Body Mass Index 29.53 02/03/2014 10:18 AM EDT documented in this encounter Progress Notes Alan Hemphill MD - 02/03/2014 12:09 PM EDT Norm Blair returns to the Neurosurgery Clinic for followup of his lumbar diskectomy. He has been attending physical therapy, and that has been doing well. He has been released from that with no restrictions, and he feels well. He is fully ambulatory. I think this represents a good result. I think he could return to work. All questions were answered. He knows he can call here at any time if further questions or problems would arise. 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
--- OUTSIDE RECORDS SUMMARY | 2022-03-08 01:47 | XMS_ITS | Encounter Summary ---
:1970 Author Organization [facility] [place] [address] Care Team Providers Name Role Phone Jacob Adams MD Primary Care Provider [phone] Encounter Details Date Type Department Care Team Description 09/08/2013 Telephone Pain Management at [facility] [place], [place] [address] Social History Tobacco Use Types Packs/Day [...] this encounter Miscellaneous Notes Telephone Encounter - Elli Kim, RN - 09/08/2013 5:04 PM EST Norm Blair :1970 Message left: I left a message on answering machine Mr. Blair at 5:04 PM regarding his upcoming lumbar epidural steroid injection with Dr. Wilfrid Sanford MD. Message included the followin. Patient instructed to arrive at 1000 (30 minutes prior to procedure start time) on 09/09/2013 (date of procedure) with their transit driver. 2. Following instructions left in the message: - Bring Updated list of medications including dosage and reason for taking. - Call the Pain Clinic Nurse at for: ~Procedure instructions. ~If you are taking antibiotics. ~If you have any signs or symptoms of infection, cold or flu. ~If you have any skin breakdown (rashes, cysts, or abscess.) ~If you are taking anticoagulants / blood thinners (Plavix, Pletal, Lovenox, Coumadin, etc). Elli Kim RN documented in this encounter Plan of Treatment Not on filedocumented as of this encounter Visit Diagnoses Not on filedocumented in this encounter Care Teams Nozzle And Sleeve Worker Relationship Specialty Start Date End Date Jacob Adams MD PCP - General 07/11/10 12/17/[address] [place] [address] documented as of this encounter
--- OUTSIDE RECORDS SUMMARY | 2022-03-08 01:47 | XMS_ITS | Encounter Summary ---
:1970 Author Organization [place] [address] Care Team Providers Name Role Phone Jacob Adams MD Primary Care Provider [phone] Reason for Referral Consultation (Routine) - Closed Specialty Diagnoses / Procedures Referred By Contact Refer red To Contact Pain Management Diagnoses Right leg pain Alan Hemphill MD [facility] [address] [place] [address] [place] [address] [place] [address] Fax: Referral ID Status Reason Start Date Expiration Date Visits V isits Requested Authorized [id number] Closed Consult, 09/04/2013 03/03/2014 1 1 Test & Treat Reason for Visit Reason Comments Results had MRI prior Encounter Details Date Type Department Care Team Description 09/04/2013 Office Visit [place] at [facility] [place] Alan Hemphill MD Right leg pain [facility] (Primary Dx) [facility] [place] [address] NEUROSURGERY [phone] [place], [place] [address] Social History Tobacco Use Types [...] Sign Reading Time Taken Comments Blood Pressure 125/91 09/04/2013 1:45 PM EST Pulse 91 09/04/2013 1:45 PM EST Temperature - - Respiratory Rate - - Oxygen Saturation - - Inhaled Oxygen Concentration - - Weight 90.7 kg (200 lb) 09/04/2013 1:45 PM EST Height 177.8 cm (5' 10) 09/04/2013 1:45 PM EST Body Mass Index 28.7 09/04/2013 1:45 PM EST documented in this encounter Progress Notes Alan Hemphill MD - 09/04/2013 3:28 PM EST Norm Blair returns to Neurosurgery Clinic. 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 He has had no specific treatment for this, and pain has not significantly improved. On examination, motor strength is full in the lower extremities. Deep tendon reflexes are 1+ at the left knee, absent at the right knee, 1+ at the ankles. Straight leg raising is negative. Review of his lumbar MRI shows postsurgical changes at L3-4 on the left and at 4-5 and 5-1. 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 We discussed the uncertain natural history of this at his prior surgeries. I think it would be not unreasonable for him to have a lumbar epidural steroid injection, and I will see him in a few weeks following that. All questions were answered. documented in this encounter Plan of Treatment Scheduled Referrals Name Type Priority Associated Diagnoses Order S chedule Referral to Pain Outpatient Referral Routine Right leg pain Or dered: Clinic 09/04/2013 documented as of this encounter Visit Diagnoses Diagnosis Right leg pain - Primary Pain in limb documented in this encounter Care Teams Rubber Calender Helper Relationship Specialty Start Date End Date Jacob Adams MD PCP - General 07/11/10 12/17/[address] [place] [address] documented as of this encounter
--- OUTSIDE RECORDS SUMMARY | 2022-03-08 01:47 | XMS_ITS | Encounter Summary ---
:1970 Author Organization [facility] [place] [address] Care Team Providers Name Role Phone Jacob Adams MD Primary Care Provider [phone] Reason for Visit Reason Onset Date Comments Post Procedure Call 10/08/2013 Encounter Details Date Type Department Care Team Description 10/08/2013 Telephone Neurosurgery at [facility] [place] Marilyn Guerra Post Procedure Call [facility] [place] [address] Social History Tobacco Use Types Packs/Day [...] this encounter Miscellaneous Notes Telephone Encounter - Marilyn Guerra RN - 10/08/2013 2:52 PM EST F/U call s/p L3-4 laminectomy/discectomy Date: 10/08/13 Neuro: alert and oriented: yes Dizzy or lightheaded: no Numbness/tingling/weakness: less numbness in foot Ambulation: steady, walks 45 minutes a couple of times a day Incision: looks good [place] to be removed by friend (RN) Pain: less in right leg, hip hurts, hasn't taken any narcotic pain meds, takes Ibuprofen at bedtime PO: eating and drinking well B&B: working well Sleep: good Other: documented in this encounter Plan of Treatment Not on filedocumented as of this encounter Visit Diagnoses Not on filedocumented in this encounter Care Teams Engineering Research Manager Relationship Specialty Start Date End Date Jacob Adams MD PCP - General 07/11/10 12/17/16 [address] [place] [address] documented as of this encounter
--- OUTSIDE RECORDS SUMMARY | 2022-03-08 01:47 | XMS_ITS | Encounter Summary ---
:1970 Author Organization [facility] [address] Care Team Providers Name Role Phone Jacob Rene MD Primary Care Provider [phone] Encounter Details Date Type Department Care Team Description 10/01/2013 - Hospital Encounter 3 [facility] Maricruz Vazquez MD 10/02/2013 [facility] [place] [phone] Social History Tobacco Use Types Packs/Day Years [...] Sign Reading Time Taken Comments Blood Pressure 130/70 10/02/2013 10:27 AM EST Pulse 68 10/02/2013 10:27 AM EST Temperature 36.6 ??C (97.9 ??F) 10/02/2013 10:27 AM EST Respiratory Rate 17 10/02/2013 10:27 AM EST Oxygen Saturation 98% 10/02/2013 10:27 AM EST Inhaled Oxygen Concentration - - Weight 90.7 kg (200 lb) 10/01/2013 2:58 PM EST Height 176.5 cm (5' 9.5) 10/01/2013 2:58 PM EST Body Mass Index 29.11 10/01/2013 2:58 PM EST documented in this encounter Discharge Instructions Patient [...] may be used if needed and are zeis-tmk-bvlsnro (OTC) medications available at most [facility]. Prunes or prune juice, taken daily, can also be helpful for constipation treatment or pre vention and are available [facility] Driving Restrictions*: None Activities: Discuss return to [...] Nurse: Marilyn Guerra Inpatient Nurses: Neurosurgical Resident [place] (after 5pm or before 8am): Neurosurgery offices (weekdays between 8am-5pm): Dr. Hemphill: Dr. Bowser: Pediatric Patients , Adult [phone] Dr. Adair: Dr. Bui: Dr. Peraza: Dr. Alejandra Je Barnes, Physician Gluer Machine Operator Fernanda Malik, Physician Gluer Machine Operator Je Kidd, Physician Gluer Machine Operator Minnie North, Nurse Practitioner Your surgeon may not be [place], especially during the night or on weekends, [...] criteria for trans to room atthis time Mraciano Crews MD - 10/01/2013 7:04 AM EST [...] Discharge Medications: Norm Blair Home Medication Instructions TERRENCE:[id number] Printed on:10/02/13 1033 Medication Information acetaminophen (TYLENOL) [...] may be used if needed and are zrpd-pbl-wwdwmaj (OTC) medications available at most [facility]. Prunes or prune juice, taken daily, can also be helpful for constipation treatment or pre vention and are available at most [place]. Driving Restrictions*: None Activities: Discuss return to [...] Nurse: Marilyn Guerra Inpatient Nurses: Neurosurgical Resident [place] (after 5pm or before 8am): Neurosurgery offices (weekdays between 8am-5pm): Dr. Hemphill: Dr. Bowser: Pediatric Patients , Adult [phone] Dr. Adair: Dr. Bui: Dr. Peraza: Dr. Alejandra Je Barnes, Physician Gluer Machine Operator Fernanda Malik, Physician Gluer Machine Operator Je Kidd, Physician Gluer Machine Operator Minnie North, Nurse Practitioner Your surgeon may not be [place], especially during the night or on weekends, so be ready to tell about yourself and your surgery when you call. CC: Primary Care Physician: JACOB RENE MD Future Appointments and Orders Future Appointments: Provider: Department: Dept Phone: Center: 11/11/2013 10:30 AM Sofía Hemphill MD Neurosurgery [phone] [facility] Electronically Signed By: RUBINA MEZA 10/02/2013 Care Management - Zeferino Means RN - 10/02/2013 9:05 AM EST Office of Care Management Clinical Assembler Dielectric Heater (CRC) INITIAL ASSESSMENT Room # 315-A Chart reviewed. Patient and plan of care discussed in morning multidisciplinary rounds. REASON for HOSPITALIZATION: 42 y.o. male s/p L3-4 laminectomy, discectomy PCP:JACOB RENE MD [address] [facility] [id number] PMHx: See e-Dh for complete history. CURRENT STATUS: Remains at baseline level of function. SOCIAL/FAMILY SUPPORTS: INSURANCE COVERAGE/FINANCIAL ISSUES: [facility] partner REHAB TEAM CONSULTS: Not indicated at this time. BRICK TENDER: Not indicated at this time. ASSESSMENT/PLAN: Nursing [...] throughout shift with PRN medication as per OCT. Pt rates pain 2-6/10.Pt is currently resting [...] Hemphill MD - 10/01/2013 10:20 AM EST [facility] [place] Patient Name: Norm Blair : [id number] MR#: [id number] Case Date: 10/01/2013 Surgeon: Surgeon(s) and Role: [...] Operative Note Patient Name: Norm Blair : [id number] MR#: [id number] Case Date: 10/01/2013 Surgeon: Surgeon(s) and Role: [...] 10/01/2013 6:21 AM SDP (FUTURE EST SURGERY, [facility] [place] ONLY) ABO/RH TYPING STAT 10/01/2013 6:21 AM Results for this EST procedure are i n the results section. ANTIBODY SCREEN STAT 10/01/2013 6:21 AM Result s for this EST procedure are i n the results section. documented in this encounter Results (ABNORMAL) Differential, Automated (10/02/2013 4:51 AM EST) [facility] Method Time Signature Neutrophils % 77.4 (H) [...] Organization Address City/State/[place] [address] CERNER MILLENNIUM Basic Metabolic Panel (non-fasting) (10/02/2013 4:51 AM EST) athologist Signature Glucose Lvl 111 60 - 199 CERNER mg/dL MILLENNIUM Comment: Diabetes: >=200 mg/dL plus symp toms BUN 14 10 - 20 mg/dL CERNER MILLENNIU M Creatinine 0.91 0.80 - 1.50 mg/dL CERNER MILL ENNIUM Comment: Please note that the pediatric reference intervals supplied above were not validated at [facility]. Results from pediatri c [...] Comment Spec In Lab Sofía Hemphill MD CHEMISTRY ORDERABLES Performing Organization Address City/[facility]/ZIP Code Phon e Number [place] [id number] CERNER MILLENNIUM (ABNORMAL) CBC (with Diff) (10/02/2013 4:51 AM EST) P athologist Signature WBC 7.8 4.0 - 10.0 [...] Hemphill MD HEMATOLOGY ORDERABLES Performing Organization Address City/[facility]/ZIP Code Phon [place] [address] [facility] Surgical Pathology Report (10/01/2013 10:52 AM EST) [facility] Method Time Signature [facility] ? [facility] Report ? Provider: ?? SOFÍA HEMPHILL ? Pt. Name: ?? RAND ALL, NORM S ? Acc #: ?[id number] ?Pt. MRN: ?[id number] ? Col Date: ?? 4 ? /Sex: [...] MD PATHOLOGY/CYTOLOGY ORDERABLE S Performing Organization Address City/[facility]/ZIP Code Phon e Number [address] [facility] Specimen to Pathology (surgical or derm) (10/01/2013 9:57 AM EST) Specimen Anatomical Collection Method Collection Time Receive d Time (Source) Location / / Volume Laterality AP Specimen 10/01/2013 9:57 AM 4 9:57 EST AM EST Narrative [facility] - 10/01/2013 9:[address] Specimen requisition ordered. ??Separate Pathology report to follow Sofía Hemphill MD PATHOLOGY/CYTOLOGY ORDERABLE S Performing Organization Address City/[facility]/[place] [address] [facility] Antibody screen (10/01/2013 6:21 AM EST) [facility] Signature Ab Screen Negative [facility] Expires at [id number] [facility] 235 on: MILLENNIUM Specimen Anatomical Collection Method Collection Time Receive d Time (Source) Location / / Volume Laterality Blood specimen 10/01/2013 6:21 AM 014 6:29 (specimen) EST AM EST Resulting Agency Comment Spec In Lab Sofía Hemphill MD BLOOD BANK ORDERABLES Performing Organization Address City/[facility]/[place] [address] [facility] ABO/Rh Typing (10/01/2013 6:21 AM EST) P athologist Signature ABORh Type A Pos АНДРЕЙ [employer] Specimen Anatomical Collection Method Collection Time Receive d Time (Source) Location / / Volume Laterality Blood specimen 10/01/2013 6:21 AM 014 6:29 (specimen) EST AM EST Resulting Agency Comment Spec In Lab Sofía Hemphill MD BLOOD BANK ORDERABLES Performing Organization Address City/State/[place] [address] [facility] documented in this encounter Visit Diagnoses Diagnosis Herniated lumbar disc without myelopathy - Primary Displacement of lumbar intervertebral di sc without myelopathy documented in this encounter Administered Medications Inactive [...] Given 10/01/2013 10:12 PM EST 650 mg famotidine (PEPCID) tablet 20 mg Given 10/01/2013 10:12 PM EST 20 mg 20 mg, Oral, 2 TIMES DAILY, First dose on Amanda 10/01/13 at 2100, Until Discontinued, If unable to take PO, may give IV, Routine HYDROmorphone (DILAUDID) injection 0.2-0.4 Given 10/01/2013 11:12 [...] Amanda 10/01/13 at 1315, Until Discontinued, Routine documented in this encounter Active and Recently Administered Medications Times are shown in EST. Scheduled Medication Order 09/30/2013 10/01/2013 10/02/2013 famotidine (PEPCID) tablet 20 mg (CANCELED) 9037 (Given - Provider: Leona Flores RN) 6982 (Not Given - Provider: Lamar carlos RN [...] tonight at 2100)2212 (Given - Provider: Leona Flores, RN) 0836 (Given - Provider: Lamar Howard [...] IV infusing)2100 (Not Given - Provider: Leona Flores, RN - Reason: See comment - Comment: [...] (Intra-Procedure) documented in this encounter Care Teams Yeast Supervisor Relationship Specialty Start Date End Date Jacob Rene MD PCP - General 07/11/10 12/17/[address] [place] [address] documented as of this encounter
--- OUTSIDE RECORDS SUMMARY | 2022-03-08 01:47 | XMS_ITS | Encounter Summary ---
:1970 Author Organization [facility] [place] [address] Care Team Providers Name Role Phone Dominga Salas APRN Primary Care Provider Reason for Visit Reason Comments Skin Check Encounter Details Date Type Department Care Team Description 12/18/2016 Office Visit Dermatology at [facility] Condylo ma acuminata; Kalani WOLFE Nevus; [address] [facility] Alopecia areata Reinaldo B DERMATOLOGY [place], [place] [phone] Social History Tobacco Use Types Packs/Day Years [...] on file documented as of this encounter Progress Notes [facility] MD - 12/18/2016 3:45 PM EDT PROBLEMS: 1. Left chest lesion. 2. Right jaw line lesion. 3. Penile shaft lesion. Norm follows up. He has last seen me in 2005, at which time we were treating some cysts with candidal antigen injections. More recently, he has been going through a lot of stress, personal, with his son going off to the service and work. He has noted, as he did about 5 years ago, an alopecia patch in his calero area, a new spot this time, however, on the right anterior jaw line. Previously, it was more on the submental neck. He also has a mole on his left chest he would like to have checked and a brown spot on the left penile shaft. Physical examination reveals a 1 x 2 cm probable condyloma on the left mid penile shaft. He has a benign-appearing nevus on the left chest, about 3 x 4 mm. He has a 1.5-cm patch of alopecia areata on the right anterior jaw line area. A/P: 1. Alopecia areata, right anterior jaw line. a. Discussed diagnosis. b. Current life stressors may be in fact the cause for this. He noticed it about a month ago. It has only been there about a month. c. Previously, it took about 4-5 months for his AA to heal and go away, but we will try to speed things up at this time by using a Kenalog injection 5 mg/mL, and this was injected and the patient tolerated well. 2. Benign nevus, left chest. a. Patient reassured. No treatment necessary. 3. Condyloma acuminata, left mid penile shaft. a. LN x2 applied to mid penile shaft site. Return to clinic in about 5 weeks for repeat check. NOTE: Patient also has some tags present on the perineum, 2. We discussed removing these with snip biopsies at time of his next visit. CC: Dominga Salas APRN documented in this encounter Plan of Treatment Not on filedocumented as of this encounter Visit Diagnoses Diagnosis Condyloma acuminata Condyloma acuminatum Nevus Benign neoplasm of skin, site unspecifie d Alopecia areata documented in this encounter Care Teams Electronics Recycler Relationship Specialty Start Date End Date Dominga Salas APRN PCP - General Internal Medicine 12/18/16 [address] [place] [address] documented as of this encounter
--- OUTSIDE RECORDS SUMMARY | 2022-03-08 01:47 | XMS_ITS | Encounter Summary ---
:1970 Author Organization [facility] [place] [address] Care Team Providers Name Role Phone Jacob Adams MD Primary Care Provider [phone] Encounter Details Date Type Department Care Team Description 11/08/2014 Orders Only [place]surgery [place] [facility] Alan Hemphill MD [facility] [place] [phone] NEUROSURGERY [phone] [place], [place] [address] (Wo rk) Social History Tobacco [...] on filedocumented in this encounter Care Teams Exhibit Cleaner Relationship Specialty Start Date End Date Jacob Adams MD PCP - General 07/11/10 12/17/16 [address] [place] [address] documented as of this encounter
--- OUTSIDE RECORDS SUMMARY | 2022-03-08 01:47 | XMS_ITS | Encounter Summary ---
:1970 Author Organization [facility] [place] [address] Care Team Providers Name Role Phone Jacob Adams MD Primary Care Provider [phone] Reason for Visit Reason Onset Date Comments Right Leg Pain 08/24/2013 Encounter Details Date Type Department Care Team Description 08/24/2013 Telephone [place] [facility] Marilyn Guerra, Right Leg Pain [facility] [place] [phone] Social History Tobacco Use Types Packs/Day Years Used Date Never Assessed Sex Assigned at Date Recorded Not on file documented as of this encounter Miscellaneous Notes Telephone Encounter - Marilyn Guerra RN - 08/24/2013 1:10 PM EST Norm called reporting recurrent right leg sciatic pain and numbness x 3 weeks. He is s/p L5-S1 hemilaminotomy/foraminotomy in 2008. It is causing difficulty sitting and sleeping. He has been to a chiropractor, takes Ibuprofen, and is using icy hot patches with little relief. An MRI has been ordered and he will be scheduled to see Dr. Hemphill. documented in this encounter Plan of Treatment Not on filedocumented as of this encounter Results MRI lumbar spine with/WO [...] leg pain - Primary Pain in limb Right leg pain Pain in limb documented in this encounter Care Teams Hospital Technician Relationship Specialty Start Date End Date Jacob Adams MD PCP - General 07/11/10 12/17/16 [employer] [place] [address] documented as of this encounter
--- OUTSIDE RECORDS SUMMARY | 2022-03-08 01:47 | XMS_ITS | Encounter Summary ---
:1970 Author Organization [facility] [place] [address] Care Team Providers Name Role Phone Dominga Salas APRN Primary Care Provider Reason for Visit Reason Comments Follow-up Encounter Details Date Type Department Care Team Description 01/28/2017 Office Visit Dermatology at [facility] Condylo ma acuminata; Kalani WOLFE Alopecia areata; [address] [facility] Acrochordon Reinaldo B DERMATOLOGY [place], [place] [phone] Social History Tobacco Use Types Packs/Day Years [...] encounter Progress Notes [facility] MD - 01/28/2017 8:00 AM EDT PROBLEMS: 1. Followup condyloma. 2. Followup alopecia areata. 3. Tags perineum. Norm follows up and the wart has shrunk, but is still present on the left penile shaft peripherally. The alopecia areata seems to have resolved. He would like me to remove 2 tags today. PHYSICAL EXAMINATION: Confirms some peripheral marginal condyloma remaining on the left mid penile shaft. The alopecia areata appears to have resolved on the right anterior jaw line area. He has 2 tags on the perineum. ASSESSMENT AND PLAN: 1. Alopecia area right anterior jaw line. a. Resolved. 2. Condyloma. Peripheral margination remaining. a. LN2 x3 applied to remaining site. Return to clinic p.r.n. 3. Tags, perineum. a. Patient reassured. Decided today after obtaining informed patient consent, the sites were anesthetized and removed with electrodesiccation. c. Not submitted for pathologic analysis. d. Return to clinic here will be p.r.n. CC: Dominga Salas APRN documented in this encounter Plan of Treatment Not on filedocumented as of this encounter Visit Diagnoses Diagnosis Condyloma acuminata Condyloma acuminatum Alopecia areata Acrochordon Unspecified hypertrophic and atrophic co ndition of skin documented in this encounter Care Teams Senior Process Engineer Relationship Specialty Start Date End Date Dominga Salas APRN PCP - General Internal Medicine 12/18/16 [address] [place] [address] documented as of this encounter
[2022-03-08 08:12] LABS: HCT 44.5 % (40.0-50.0); HGB 15.7 g/dL (13.5-17.5); MCH 30.7 pg (27.0-33.0); MCHC 35.3 % (32.0-36.0); MCV 87 fL (80-95); MPV 9.6 fL (8.0-11.0); Platelet Count 161 10^3/uL (130-400); RBC 5.11 10^6/uL (4.36-5.78); RDW 12.1 % (11.8-14.1); RDW-SD 39.1 fL; WBC 4.82 10^3/uL (4.4-10.8)
[2022-03-08 09:16] LABS: ALT 59 U/L (16-63); AST 27 U/L (15-37); Albumin 4.2 g/dL (3.4-5.0); Alkaline Phosphatase 46 U/L (46-116); Anion Gap 8.5 mmol/L (3-11); BUN 24 mg/dL (7-18); Bilirubin, Total 1.9 mg/dL (0.2-1.0); CO2 27.5 mmol/L (21.0-32.0); CREATININE 1.3 mg/dL (0.70-1.30); Calcium 9.1 mg/dL (8.5-10.1); Calculated LDL 103 mg/dL (<100); Chloride 105 mmol/L (98-107); Cholesterol 165 mg/dL (<200); Glucose 109 mg/dL (74-106); HDL Cholesterol 44 mg/dL (40-60); Sodium 141 mmol/L (136-145); Total Protein 7.6 g/dL (6.4-8.2); Triglyceride 92 mg/dL (<150)
== END 2022-03-08 01:42 | disposition home or self-care (01) ==
LOC: LBO 01:42
PROVIDERS: PCP Nurse Practitioner; Visit Provider Nurse Practitioner
DX: K90.0 Celiac disease (principal); Z13.220 Encounter for screening for lipoid disorders; Z98.890 Other specified postprocedural states
CPT/HCPCS: 36415; 80053; 80061; 85027

== ENCOUNTER 2022-03-18 16:20 | Emergency (ER) | payer OTHER, SELFPAY ==
[2022-03-18 16:24] VITALS: BP 149/113; PULSE 95; RESP 18; TEMP 37; O2SAT 95
[2022-03-18] MEDS: Amox. 875/Clav. 125, 2 TABS/BTL 1 TAB PO (16:53)
[2022-03-18] MEDS: Tetanus & Diphtheria Tox,ADULT 0.5 ML VIAL IM (16:59)
--- NOTE | 2022-03-18 17:00 | W.ED.GENAD ---
Discharge Plan Disposition Patient Disposition: HOME Condition: Stable Discharge Details Clinical Impression: Dog bite of right wrist Primary Care Provider: Dominga Salas ED Provider: Bridger Mathew Home Meds and New Rx's Prescriptions: New amoxicillin-pot clavulanate 875-125 mg tablet 1 tab PO BID 3 Days Qty: 6 0RF Continued meclizine 12.5 mg tablet 12.5 mg PO TID PRN (Reason: dizziness) Qty: 21 0RF nystatin 100,000 unit/gram cream 1 applic Topical TID PRN (Reason: rash groin) Qty: 30 2RF Discharge Instructions Instructions: Animal Bite (ED), Laceration (ED) Additional Instructions: Watch for any signs of infection and return immediately to the emergency department if these occur. Otherwise keep dressing in place for the next 24-48 hours and then keep wound clean and dry. Return to the emergency department 10 days for suture removal. Medical Decision Making Patient presenting to the emergency department for chief complaint of dog bite to right wrist. Patient reports that the 2 dogs are fully up-to-date on vaccination and he was attempting to break the dogs from fighting. Patient has a 3 cm laceration to the right wrist on the radial aspect with 2 smaller lacerations both approximately 5 mm that are just distal to the larger laceration. Wound was cleaned with no other injury or trauma, full range of motion, no bony prominence tenderness. There is visible subcutaneous tissue that deep structures are intact and not visible. With the larger laceration we will plan on thoroughly irrigating wound further and loose approximation of the wound with placing patient on Augmentin. Patient's tetanus was greater than 5 years ago so we will give patient update on his tetanus given significant laceration. Please see procedure note for laceration repair. Did discuss with patient noted elevated blood pressure which he states that he has been having whitecoat syndrome and recently followed up with primary care provider which had normal blood pressure. Patient was encouraged to monitor blood pressure and follow-up with PCP as needed for reassessment. Thoroughly discussed patient monitoring for signs of infection and return immediately if this occurs. After discussion of diagnosis and plan of care patient has no further needs, questions, or concerns and states clear understanding to return to the emergency department for any worsening symptoms. This documentation was generated using [employer] system, please disregard any oddities of phrase or misspellings. HPI General Mode of arrival: ambulatory. Date/Time Provider Initiated Documentation: 03/18/22 16:21. Limitations to Documentation: no limitations. Information obtained by: patient. History of Present Illness 51 year old M presents to the emergency department with the chief complaint of Dog bite right wrist, described as mild, with intensity rated at 4. Quality is described as sharp, and is localized to the right and upper extremity. Patient reports no radiation. Patient started experiencing this hour(s) (<1) and it has been constant. No relieving factors improve symptom(s), No exacerbating factors reported . Patient notes no other symptoms.. Patient did receive the following treatments prior to arrival, other (Copious irrigation and peroxide) Related Data Home Medications Medication Instructions Recorded Confirmed meclizine 12.5 mg tablet 12.5 mg PO TID PRN dizziness #21 01/11/21 01/11/21 tabs nystatin 100,000 unit/gram topical 1 applic topical TID PRN rash 08/24/21 03/12/22 cream groin #30 grams amoxicillin 875 mg-potassium 1 tab PO BID 3 days #6 tabs 03/18/22 clavulanate 125 mg tablet Previous Rx's Medication Instructions Recorded meclizine 12.5 mg tablet 12.5 mg PO TID PRN dizziness #21 01/11/21 tabs nystatin 100,000 unit/gram topical 1 applic topical TID PRN rash 08/24/21 cream groin #30 grams amoxicillin 875 mg-potassium 1 tab PO BID 3 days #6 tabs 03/18/22 clavulanate 125 mg tablet Allergies Allergy/AdvReac Type Severity Reaction Status Date / Time wheat dextrin Allergy Intermediate Verified 03/12/22 15:50 General Stated Complaint: AnimalBite SONYA: 4 Review of Systems Narrative: 8 systems reviewed and unremarkable except what is marked below. Musculoskeletal Musculoskeletal: Denies myalgias, Denies arthralgias, Denies joint swelling, Denies limited range of motion, Denies muscle weakness, Denies numbness and Denies tingling Integumentary/Breasts Skin/Breast: Reports as per HPI and Reports wounds Neurologic Neurologic: Denies numbness and Denies tingling PFSH All Active Problems (Updated 03/18/22 @ 17:00 by Bridger Mathew NP) Dog bite of right wrist (Acute) Meralgia paresthetica of left side (Acute) Left leg numbness (Acute) History of herniated intervertebral disc (Acute) History of back surgery (Acute) Screening for cholesterol level (Acute) Body aches (Acute) Vertigo (Acute) Condyloma acuminata (Acute 12/20/16) Dr. Fenton[place] [place] [facility] [place] Celiac disease (Acute 11/08/16) Medical History (Updated 03/18/22 @ 17:00 by Bridger Mathew NP) broken back 2000-crushed T-12 Surgical History (Updated 03/14/21 @ 10:16 by Dominga Salas NP) Cholecystectomy (10/05/03) Meniscectomy (08/19/96) Dr Cesar Uriarte Vasectomy Family History Mother Alcohol abuse Essential hypertension Arthritis Depression Mental disorder Father Alcohol abuse Heart disease Social History (Updated 03/12/22 @ 15:57 by Carole Victoria LPN) Smoking/Tobacco Use Status: Never Smoking risk assessment performed?: Yes Alcohol Intake: current Alcohol Intake frequency: holidays/special occasions only Drug use: Never Substance use type: does not use Housing: house Number of Children: 3 Communication Needs: None current occupation: [employer] What is your relationship status?: How often do you talk on the phone with friends or family?: three or more times per week Panel score (0-1 are the most socially isolated patients): 2 Do you feel safe at home: Yes Do you feel safe in your relationship?: Yes Exam Const General: cooperative, no acute distress and not ill appearing Orientation: alert, awake and oriented x3 Resp Effort & Inspection: normal respiratory effort, able to speak in complete sentences and no respiratory distress Cardio Rate: regular rate Rhythm: regular rhythm Pulses: normal peripheral pulses Skin Trauma: laceration Neuro General: patient alert, patient awake, patient oriented x3, moves all extremities and no focal motor deficits Sensory Exam: no sensory deficits noted Extrem General: normal exam except as noted Right upper extremity: wrist Details: normal ROM, laceration wrist distal lateral and radial pulse present; no tenderness and hand Details: neuromotor exam normal, neurosensory exam normal, tendon exam normal and normal ROM of fingers Hand/finger images: 1. 3 cm laceration Course Vital Signs Vital signs: Vital Signs Temperature 37.0 C 03/18/22 16:24 Pulse 95 H 03/18/22 16:24 Respiratory Rate 18 03/18/22 16:24 Blood Pressure 149/113 H 03/18/22 16:24 Pulse Oximetry 95 03/18/22 16:24 Temperature 37.0 C 03/18/22 16:24 Pulse 95 H 03/18/22 16:24 Respiratory Rate 18 03/18/22 16:24 Respiratory Effort Non-Labored 03/18/22 16:33 Blood Pressure 149/113 H 03/18/22 16:24 Blood Pressure Position Sitting 03/18/22 16:24 Pulse Oximetry 95 03/18/22 16:24 Oxygen Delivery Method Room Air 03/18/22 16:24 Oxygen Flow Rate 0 03/18/22 16:24 Pain Level 4 03/18/22 16:24 Procedures Laceration Laceration 1: Site: upper extremity Side (If applicable): right Size (cm): 3 Description: linear and clean Depth: simple, single layer Local Anesthetic: Lidocaine 2% Amount of anesthesia used (mL): 4 Pre-repair: wound explored, irrigated extensively and deep structures intact Skin layer closed with: other (prolene) Size (cm): 4-0 Number of sutures: 3 Technique: simple, interrupted
[2022-03-18 17:14] VITALS: BP 159/105; PULSE 95; RESP 18; TEMP 37; O2SAT 97
--- NOTE | 2022-03-18 22:05 | NUR.NOTE ---
Called Chair of [facility] to report animal bite and left voice message to emergency dept back.Nursing Note:
--- NOTE | 2022-03-19 08:19 | NUR.NOTE ---
Nursing Note: Faxed to [facility] Clerk the animal bite report form. [facility].
== END 2022-03-18 17:15 | disposition home or self-care (01) ==
PROVIDERS: Emergency Provider Nurse Practitioner Family; PCP Nurse Practitioner
DX: S61.551A Open bite of right wrist, initial encounter (principal); W54.0XXA Bitten by dog, initial encounter
CPT/HCPCS: 12002; 90471

== ENCOUNTER 2022-06-06 15:54 | Outpatient (REF) | payer OTHER, SELFPAY | END 2022-06-06 15:55 | disposition home or self-care (01) | LOC: LBN 15:54 | PROVIDERS: PCP Nurse Practitioner; Visit Provider Nurse Practitioner | DX: R30.0 Dysuria (principal); Z11.59 Encounter for screening for other viral diseases | CPT/HCPCS: 87086 ==

== ENCOUNTER 2022-06-07 13:57 | Outpatient (REF) | payer OTHER, SELFPAY ==
[2022-06-09 09:40] LABS: Chlamydia Result Negative (Negative); GC Result Negative (Negative)
== END 2022-06-07 13:58 | disposition home or self-care (01) ==
LOC: LBN 13:57
PROVIDERS: PCP Nurse Practitioner; Visit Provider Nurse Practitioner
DX: R30.0 Dysuria (principal)
CPT/HCPCS: 87491; 87591

== ENCOUNTER 2023-06-06 07:00 | Day surgery (SDC) | payer OTHER, SELFPAY ==
--- NOTE | 2023-06-05 20:17 | W.PM.DSUDISC ---
Date of service: 06/06/23 Time of Service: 08:48 Discharge Plan Disposition Patient Disposition: Home Condition: Good Discharge Details Reason For Visit: Screening colonoscopy Attending Provider: Ede Fish Primary Care Provider: Dominga Salas Home Meds and New Rx's Prescriptions: Discontinued polyethylene glycol 3350 17 gram/dose powder 238 g PO ONCE Qty: 238 0RF Rx Instructions: take per colonoscopy instructions bisacodyl [Dulcolax (bisacodyl)] 5 mg tablet,delayed release (DR/EC) 5 mg PO ONCE Qty: 4 0RF Rx Instructions: take per colonoscopy instructions Discharge Instructions Additional Instructions: Norm, we were able to complete your colonoscopy today without any difficulty. I was able to see everything just fine. I did find a total of 3 polyps. All were quite small. I removed them all completely. Once I have the results of the pathology report, I will be in touch with my final recommendations regarding your next colonoscopy. 1. If tolerated, consume a soft, low fiber diet for 1-2 days. 2[address] Do not drive, drink alcohol, operate machinery, make critical decisions, or do activities that require coordination or balance for 24 hours. 3. Because air was put into your colon during the procedure, expelling air from your rectum (passing gas or farting) is normal. 4. You may not have a bowel movement for 1-3 days because of the colonoscopy prep. This is normal. 5. Go directly to the emergency room if you notice any of the following: Develop chills (warm to touch), or if you have a thermometer and your temperature is above 101 Difficulty breathing or difficultly swallowing Persistent vomiting Severe abdominal pain, other than gas cramps Severe chest pain Black, tarry stools Any bleeding ? exceeding one tablespoon 6. Call your physician if the site where your intravenous was started becomes red, swollen, painful, and warm to touch. 7. Your physician has reviewed your pre-procedure medications. Please continue to take those medications as previously ordered. You will be given specific information/education regarding any changes to your medications before leaving. Activity:: Activity as Tolerated Diet:: As Tolerated Discharge Orders Discharge Orders: Discharge Order (Routine); Ordered 06/05/23 Ordered By: Ede Fish DS: Diagnosis Discharge Diagnosis (1) Screen for colon cancer: Status: Acute Asessment and Plan: Follow-up on polypectomy results
--- NOTE | 2023-06-05 20:19 | COLE_ITS ---
Date of service: 06/06/23 Time of Service: 08:49 Colonoscopy Report Date of procedure: 06/06/23 Pre-op diagnosis general: screening colonoscopy Post-op diagnosis procedure note: other (Colon polyps) Procedure: Colonoscopy with polypectomy Surgeon: Ede Fish Anesthesia Type: General:No Airway Estimated blood loss (mL): 5 Pathology: other (Cecal polyp, colon polyps at 25 and 35 cm) Complications: None Disposition: same day Indications: Norm is a 52 year old man. He has a first dregree family history of colon cancer. He needs a screening colonoscopy. Prep: Miralax/Dulcolax Procedure Start Time: 08:17 Procedure End Time: 08:40 Retraction Time: 17 Findings: 0.25 cm cecal polyp, 0.25 cm polyps at 35 and 25 cm Procedure Description: After the induction of monitored anesthetic care, and with the patient in left lateral decubitus position, I began by performing an external anorectal exam.? Perineum and skin were normal, as was the anal verge.? There was no evidence of external hemorrhoids.? Next, I performed a digital rectal exam.? I did not appreciate any abnormal findings.? Next, I advanced a colonoscope into the rectal vault.? I performed retroflexion.? This appeared normal.? Using insufflation, I then advanced the colonoscope beyond the rectal folds and into the sigmoid colon before advancing towards the cecum.? The scope was noted to be in the cecum by identification of the ileocecal valve and appendiceal orifice.? Just adjacent to the appendix was a 0.25 cm sessile cecal polyp. I removed this with cold forceps polypectomy. I then began withdrawing the colonoscope using repeated irrigation as necessary for full evaluation of the colonic mucosa. Polyps were also found at 25 and 35 cm from the anus. Both were less than 0.25 cm. Both were removed with cold forceps polypectomy, both were sessile. ?Once the scope was withdrawn to the level of the rectum, great care was taken to examine portions of the rectal folds.? [place] prep score was 3, 2, 2 from left to right. finally, the scope was withdrawn and the patient was brought to the same-day surgery recovery unit as the anesthetic wore off. ?The findings and instructions were shared with the patient prior to discharge.
--- NOTE | 2023-06-06 06:52 | W.ANESPRE ---
General Info Date of Service Date Performed: 06/06/23 Height: 5 ft 9 in Weight: 102.512 kg Body Mass Index (BMI): 33.3 Surgical Procedure: Operation Date: 06/06/23 08:05 Proposed Procedure Side Surgeon jeyson Fish MD Meds Allergies and Home Medications Allergies Allergy/AdvReac Type Severity Reaction Status Date / Time wheat dextrin Allergy Intermediate Verified 06/05/23 11:18 Current Visit Medications: Current Medications Generic Name Dose Route Start Last Admin Trade Name Freq PRN Reason Stop Dose Admin Hyoscyamine Sulfate 0.125 mg 06/05/23 20:20 Hyoscyamine 0.125 Mg Sl/Oral/Chew SL 07/05/23 20:19 DIRECTED PRN IV Miscellaneous Supplies 1 each 06/06/23 06:00 Iv Access IV 07/05/23 23:59 DIRECTED DIMITRIS Ondansetron HCl 4 mg 06/05/23 20:20 Ondansetron 4 Mg/2 Ml Vial IVP 07/05/23 20:19 Q4H PRN PRN Nausea / Vomiting Sodium Chloride 0 ml 06/06/23 06:00 Normal Saline Flush 10 Ml Syr IV 07/05/23 23:59 PRN PRN Sodium Chloride 0 ml 06/06/23 06:00 Normal Saline 10 Ml Vial IJ 07/05/23 23:59 DIRECTED PRN Sterile Water 0 ml 06/06/23 06:00 Water,Injection,Sterile 10 Ml Vial IJ 07/05/23 23:59 DIRECTED PRN PFSH Active Problems Active Problems: Problem Status Onset Code Screen for colon cancer Z12.11 Meralgia paresthetica of left side G57.12 Left leg numbness R20.0 History of herniated intervertebral disc Z87.39 History of back surgery Z98.890 Screening for cholesterol level Z13.220 Body aches R52 Vertigo R42 Celiac disease 11/08/16 K90.0 Condyloma acuminata 12/20/16 A63.0 Medical History Medical History (Updated 06/05/23 @ 20:18 by Ede Fish MD) broken back 1999-crushed T-12 x4 back surgeries Surgical History Surgical History (Updated 06/05/23 @ 11:17 by Polo O[place]) Vasectomy Meniscectomy (08/19/96) Dr Cesar Uriarte x3 surgeries on knee Cholecystectomy (10/05/03) Tobacco Smoking/Tobacco Use Status: Never Alcohol Alcohol Intake: current Alcohol intake frequency: holidays/special occasions only Substance Use Substance use: Daily Substance use type: marijuana Vital Signs and Lab Results Lab Results Blood Type / Crossmatch: No Data to Display Complete Blood Count: No Data to Display Complete Metabolic Panel: No Data to Display Liver Function Panel: No Data to Display Coagulation Panel: No Data to Display Cardiac Panel: No Data to Display Arterial Blood Gas: No Data to Display Venous Blood Gas: No Data to Display Pancreas Panel: No Data to Display Thyroid Panel: No Data to Display Infectious Disease: No Data to Display Blood Cultures: No Data to Display Toxicology Panel: No Data to Display Anesthesia Assessment and Plan Anesthesia History Personal History: No History of Anesthesia Complications Family History: No Family History of Anesthesia Complications Exercise Tolerance Exercise Tolerance: Metabolic Equivalents>4 Pertinent Negatives Pertinent Negatives: No Symptoms of GERD Cardiac & Pulmonary Exam Cardiac Exam: Normal S1/S2 Heart Sounds Pulmonary Exam: Clear Bilateral Breath Sounds Implantable Cardiac Device Does patient have a Pacemaker or an ICD?: No Airway Exam Known Difficult Airway: No Mallampati Class: 3 Mouth Opening: Normal (> 3cm) Thyromental Distance: Greater than 3 cm Neck Range of Motion: Full ROM Neck Circumference: Normal Teeth Condition: Normal Dentition ASA Classification ASA Score: ASA 2 Emergency Case?: No NPO Status NPO Status: NPO Clears >2 hours, Solids >8 hours Anesthesia Plan Resuscitation Status: Full Code Anesthesia Technique: General Anesthesia Airway Planned: Natural Airway Monitors Used: Standard Monitors
[2023-06-06 06:54] VITALS: BMI 33.3
[2023-06-06 07:18] VITALS: BP 154/95; PULSE 88; RESP 20; TEMP 36.5; O2SAT 95
[2023-06-06] MEDS: Lactated Ringers 1,000 ML 80 ML IV (07:38)
--- NOTE | 2023-06-06 08:25 | BOWEL_PTH ---
PATIENT: Norm Blair LOC: [facility] U#:[id number] AGE/SX: 52/M ROOM: RE06/06/[address]: Ede Fish MD : 1970 BED: DIS: 06/06/2023 SPEC #: [id number] RECD: 06/06/23 10:34 STATUS: JEFRY REQ #: [id number] KE: 06/06/23 08:[address]: Ede Fish DEPT: Surgical Specimen RECD BY: Smiley Lugo ENTERED: 06/06/23 10:36 SP TYPE: Bowel OTHR DR: Dominga Salas APRN Tissues: 1 - BIOPSY BOWEL 2 - BIOPSY BOWEL 3 - BIOPSY BOWEL Procedures: GROSS AND MICRO LEVEL 4 Comments: [id number]
[2023-06-06 08:48] VITALS: BP 114/97; PULSE 91; RESP 18; TEMP 36.5; O2SAT 94
[2023-06-06 09:15] VITALS: BP 128/97; PULSE 83; RESP 20; TEMP 36.2; O2SAT 95
--- NOTE | 2023-06-06 09:38 | W.ANESPOSTOP ---
Postoperative Evaluation Date, Time and Location Date Performed: 06/06/23 Time Performed: 08:48 Patient Location: Day Surgery Unit Vital Signs Most Recent Imported Vital Signs: Most Recent Vital Signs Temp Pulse Resp BP Pulse Ox 36.2 C L 83 20 128/97 H 95 06/06/23 09:15 06/06/23 09:15 06/06/23 09:15 06/06/23 09:15 06/06/23 09:15 Pain Score Most Recent Pain Score: Most Recent Pain Score Pain Level 0 06/06/23 09:15 Assessment Mental Status: Awake (Alert & Oriented to Patient Baseline) Airway and Respiratory Function: Patent airway with normal (patient baseline) respiratory exam Cardiovascular Function: Hemodynamically Stable Hydration Status: Adequately Hydrated Nausea & Vomiting: No Nausea or Vomiting Pain: Pt. Denies Any Pain Peripheral Nerve Block: Patient did not receive a nerve block
== END 2023-06-06 09:35 | disposition home or self-care (01) ==
LOC: SUR 07:01
PROVIDERS: PCP Nurse Practitioner; Visit Provider Surgery
PROC: 0DJD8ZZ Inspection of Lower Intestinal Tract, Via Natural or Artificial Opening Endoscopic (ICD-10-PCS; CPT 45378; principal; 2023-06-06 08:00)
DX: Z12.11 Encounter for screening for malignant neoplasm of colon (principal); K90.0 Celiac disease; D12.0 Benign neoplasm of cecum
CPT/HCPCS: 45380; 88305

== ENCOUNTER 2023-10-11 07:59 | Emergency (ER) | payer SELFPAY ==
--- NOTE | 2023-10-11 08:00 | RT.EKG_ITS ---
APPROVED REPORT Exam: Resting ECG Reason for Exam: Chest pain Patient Location: E HR:74 bpm ECG Measurements Heart Rate 74 AXIS NC 148 P 22 QRSd 84 QRS 20 QT 350 T 18 QTc 390 Conclusion Sinus rhythm...normal P axis, V-rate 60- 99 Narrow complex normal sinus rhythm at a rate of 74. Normal axis. Intervals within normal limits. T wave flattening in lead III. No ST segment abnormalities. Poor R wave progression. No prior for c omparison.
[2023-10-11 08:02] VITALS: BP 171/115; PULSE 91; RESP 15; TEMP 36.8; O2SAT 96
--- NOTE | 2023-10-11 08:16 | ED.GENADUL_ITS ---
Discharge Plan Disposition Patient Disposition: Home Discharge Details Clinical Impression: Chest pain Primary Care Provider: Dominga Salas ED Provider: Bridger Mathew Home Meds and New Rx's Prescriptions: No Action No Known Home Meds Discharge Instructions Instructions: Chest Pain (ED) Additional Instructions: At this time your emergent workup has not shown any obvious source for your chest pain. After discussion and use of shared decision making we have decided to continue your workup on an outpatient basis. You will need to follow-up with your primary care provider for further discussion of outpatient cardiac testing given your significant family history. Continue to monitor your symptoms and return immediately for any new or significant worsening of your condition Referrals: Dominga Salas, S[employer]IOR [employer]CH[employer] DES[employer]ER [Primary Care Provider] - 3 days HPI General Mode of arrival: ambulatory . Date/Time Provider Initiated Documentation: 10/11/23 08:01 . Limitations to Documentation: no limitations . Information obtained by: patient and RN notes reviewed . History of Present Illness 52 year old M presents to the emergency department with the chief complaint of Chest pain, described as moderate, Quality is described as sharp (Spasms), and is localized to the chest. Patient reports radiation to (Jaw). Patient started experiencing this minute(s) (45) and it has been constant. No relieving factors improve symptom(s), No exacerbating factors reported . Patient notes no other symptoms.. Patient did receive the following treatments prior to arrival, none Related Data Home Medications Medication Instructions Recorded Confirmed Unknown [No Known Home Meds] 10/11/23 10/11/23 Allergies Allergy/AdvReac Type Severity Reaction Status Date / Time wheat dextrin Allergy Intermediate celiac Verified 10/11/23 08:07 General Stated Complaint: Chest Pain SONYA: 2 Review of Systems Constitutional Constitutional: Denies chills, Denies fever(s) and Denies malaise Cardiovascular Cardiovascular: Reports as per HPI, Reports chest pain, Denies chest pain with activity, Denies syncope, Denies irregular heart rhythm, Denies palpitations and Denies dyspnea Respiratory Respiratory: Denies cough, Denies hemoptysis and Denies dyspnea Gastrointestinal Gastrointestinal: Denies abdominal pain, Denies nausea and Denies vomiting Neurologic Neurologic: Denies syncope Psychiatric Psychiatric: Denies anxiety Endocrine Endocrine: Denies palpitations Exam Const General: cooperative, healthy appearing, comfortable, no acute distress, not diaphoretic and not ill appearing Nutritional Appearance: average body habitus Orientation: alert, awake and oriented x3 Limitations: mental status not altered Neck Neck: normal visual inspection, full ROM, trachea midline, supple and no anterior neck swelling Chest Chest: normal inspection of the chest Resp Effort & Inspection: normal respiratory effort and able to speak in complete sentences Auscultation: clear to auscultation bilaterally Cardio Jugular venous pressure: no JVD Palpation: normal PMI Rate: regular rate Rhythm: regular rhythm Heart Sounds: S1 normal, S2 normal, no click, no gallops, no murmurs and no rubs Bruits: no carotid bruits Pulses: radial pulses present bilaterally 2+ Skin General skin exam: no rashes or lesions noted Neuro General: patient alert, patient awake, patient oriented x3, tone normal and moves all extremities Course Vital Signs Vital signs: Vital Signs Temperature 36.8 C 10/11/23 08:02 Pulse 91 H 10/11/23 08:02 Respiratory Rate 15 10/11/23 08:02 Blood Pressure 171/115 H 10/11/23 08:02 Pulse Oximetry 96 10/11/23 08:02 Temperature 36.8 C 10/11/23 08:02 Temperature Source Oral 10/11/23 08:02 Pulse 91 H 10/11/23 08:02 Respiratory Rate 15 10/11/23 08:02 Respiratory Effort Normal, Non-Labored 10/11/23 08:07 Blood Pressure 171/115 H 10/11/23 08:02 Blood Pressure Position Sitting 10/11/23 08:02 Pulse Oximetry 96 10/11/23 08:02 Oxygen Delivery Method Room Air 10/11/23 08:02 Oxygen Flow Rate 0 10/11/23 08:02 Pain Level 5 10/11/23 08:02 Medical Decision Making Patient presenting to the emergency department for chief complaint of chest pain . Patient states he was driving when he started having left-sided chest pain that radiated into his jaw. He states it felt like a deep spasm and then slightly improved but then continued intermittently with spasm type sensation. He did belch which he thought would make it feel better but did not change pain or discomfort. Patient does report significant family history of cardiac disease with multiple family members having MIs in their 50s and 60s with some even having cardiac arrest. Patient denies any hyperlipidemia states slight borderline high blood pressure that he does not use medication for, and other history to include significant back surgeries and celiac disease. Physical exam is noncontributory with no obvious abnormal findings, review of vital signs does show initial slight tachycardia and hypertension but we will recheck this given patient's reported history of closer to normotensive blood pressure. Will plan on performing EKG and labs along with chest x-ray. Pending results will give aspirin Please see physician interpretation for full interpretation of EKG. upon my review patient is in sinus rhythm, rate of 74, no acute findings to suggest STEMI. Will continue to monitor Reviewed patient's labs and CBC unremarkable, CMP shows slight elevation of anion gap and BUN otherwise noncontributory labs. Initial troponin is negative/nondetected. Chest x-ray reviewed along with radiologist dictation that shows no acute findings. Will continue to monitor pending delta troponin Reassessed patient and patient is pain-free, negative delta troponin, blood pres sure normalized to 140/95 which I do not feel needs emergent treatment. Discussed with patient significant family medical history and options of observation and inpatient workup versus outpatient workup with close monitoring and return precautions. After shared decision-making was utilized patient understands risk factors and states he would like to continue workup on outpatient basis. After discussion of diagnosis and plan of care patient has no further needs, questions, or concerns and states clear understanding to return to the emergency department for any worsening symptoms. This documentation was generated using [employer] dictation system, please disregard any oddities of phrase or misspellings. Imaging Data Radiologic Study: Imaging: X-Ray Radiologist's impression: Exam(s) XR CHEST 2V PA LATERAL EXAM: XR CHEST 2V PA LATERAL CLINICAL HISTORY: chest pain TECHNIQUE: 2D digital imaging was performed of the chest. Two images were obtained. PA and lateral views were obtained. COMPARISON: No exams were available for comparison FINDINGS: MEDIASTINUM: Normal. HEART: Normal. PULMONARY VASCULATURE: Normal. LUNGS: Clear. PLEURAL SPACE: No pleural effusion or pneumothorax. BONE:Within normal limits for the patient's age. OTHER FINDINGS:Normal. IMPRESSION: No acute pulmonary findings. Lab Data Lab results reviewed: Yes I reviewed the patient's lab results. Quality:SDOH Health Related Social Needs: No Data to Display PFSH All Active Problems (Updated 10/11/23 @ 12:17 by Bridger Mathew NP) Chest pain (Acute) Tubular adenoma of colon (Acute ~05/2023) Screen for colon cancer (Acute) Meralgia paresthetica of left side (Acute) Left leg numbness (Acute) History of herniated intervertebral disc (Acute) History of back surgery (Acute) Screening for cholesterol level (Acute) Body aches (Acute) Vertigo (Acute) Celiac disease (Acute 11/08/16) Condyloma acuminata (Acute 12/20/16) Dr. Fenton/[facility] [place] Medical History Cough error. not meant for this chart broken back 1999-crushed T-12 x4 back surgeries Surgical History History of colonoscopy (~05/2023) polyps removed-tubular adenoma cecum Vasectomy Meniscectomy (08/19/96) Dr Cesar Uriarte x3 surgeries on knee Cholecystectomy (10/05/03) Family History Mother Alcohol abuse Essential hypertension Arthritis Depression Mental disorder Colon cancer Father Alcohol abuse Heart disease Maternal Grandmother Colon cancer Social History Smoking/Tobacco Use Status: Never Smoking risk assessment performed?: Yes Alcohol Intake: current Alcohol Intake frequency: holidays/special occasions only Drug use: Daily Substance use type: marijuana Details: sleep gummies at night Housing: house Number of Children: 3 Communication Needs: None current occupation: [employer] Current gender identity: male What is your relationship status?: How often do you talk on the phone with friends or family?: three or more times per week Panel score (0-1 are the most socially isolated patients): 2 Do you feel safe at home: Yes Do you feel safe in your relationship?: Yes
[2023-10-11 08:23] LABS: Abs Immature Grans 0.03 10^3/uL (0.0-0.06); Absolute Basophil Count 0.06 10^3/uL (0.0-0.2); Absolute Eosinophil Count 0.18 10^3/uL (0.0-0.7); Absolute Lymphocyte Count 1.26 10^3/uL (1.2-3.4); Absolute Monocyte Count 0.48 10^3/uL (0.1-0.8); Absolute Neutrophil Count 2.82 10^3/uL (1.2-6.7); Basophils % 1.2; Eosinophils % 3.7; HCT 44.4 % (40.0-50.0); HGB 15.8 g/dL (13.5-17.5); Immature Grans % 0.6; Lymphocytes % 26.1; MCH 29.7 pg (27.0-33.0); MCHC 35.6 % (32.0-36.0); MCV 84 fL (80-95); MPV 9.4 fL (8.0-11.0); Monocytes % 9.9; Neutrophils % 58.5; Platelet Count 168 10^3/uL (130-400); RBC 5.32 10^6/uL (4.36-5.78); RDW 12.4 % (11.8-14.1); RDW-SD 37.5 fL; WBC 4.83 10^3/uL (4.4-10.8)
[2023-10-11 08:37] LABS: PTT Activated 24.6 sec (23.6-32.8); Prothrombin Time 10.4 sec (9.1-11.1)
[2023-10-11] MEDS: Aspirin 81 MG CHEW 324 MG CH (08:37)
[2023-10-11] MEDS: Normal Saline Flush 10 ML SYR IVP (08:37)
[2023-10-11 08:41] LABS: ALT 49 U/L (16-63); AST 25 U/L (15-37); Albumin 4.1 g/dL (3.4-5.0); Alkaline Phosphatase 53 U/L (46-116); Anion Gap 11.3 mmol/L (3-11); BUN 23 mg/dL (7-18); Bilirubin, Total 1.9 mg/dL (0.2-1.0); CO2 24.7 mmol/L (21.0-32.0); CREATININE 1.1 mg/dL (0.70-1.30); Calcium 8.8 mg/dL (8.5-10.1); Chloride 103 mmol/L (98-107); Estimated GFR 80.77 (mL/min/1.73m2); Glucose 116 mg/dL (74-106); Magnesium 2.1 mg/dL (1.8-2.4); Sodium 139 mmol/L (136-145); Total Protein 7.7 g/dL (6.4-8.2); Troponin I < 50 ng/L (< or =60)
--- NOTE | 2023-10-11 08:54 | DI.RAD_ITS ---
Exam(s) XR CHEST 2V PA LATERAL EXAM: XR CHEST 2V PA LATERAL CLINICAL HISTORY: chest pain TECHNIQUE: 2D digital imaging was performed of the chest. Two images were obtained. PA and lateral views were obtained. COMPARISON: No exams were available for comparison FINDINGS: MEDIASTINUM: Normal. HEART: Normal. PULMONARY VASCULATURE: Normal. LUNGS: Clear. PLEURAL SPACE: No pleural effusion or pneumothorax. BONE:Within normal limits for the patient's age. OTHER FINDINGS:Normal. IMPRESSION: No acute pulmonary findings. DATA REPOSITORY: RADIATION DOSE DELIVERED:
[2023-10-11 11:45] LABS: Troponin I < 50 ng/L (< or =60)
--- NOTE | 2023-10-11 12:19 | NUR.NOTE ---
Nursing Note: PT needs follow up early next week with PCP for chest pain follow up. Lorri, ED
[2023-10-11 12:22] VITALS: BP 190/90; PULSE 91; RESP 18; O2SAT 98
== END 2023-10-11 12:27 | disposition home or self-care (01) ==
PROVIDERS: Emergency Provider Nurse Practitioner Family; PCP Nurse Practitioner
DX: R07.9 Chest pain, unspecified (principal); R11.0 Nausea
CPT/HCPCS: 80053; 93005; 99285; 71046; 83735; 84484; 85025; 85610; 85730; 93010; 99284